=== PATIENT | female | born 1935 | race Caucasian/White ===

== ENCOUNTER 2016-11-29 15:49 | Observation (INO) ==
[2016-11-29] MEDS ORDERED: Ipratropium/Albuterol Neb 3 ML IH ONE (15:57)
[2016-11-29] MEDS ORDERED: methylPREDNISolone 125 MG/2 ML VIAL IVP ONE (15:57)
[2016-11-29] MEDS ORDERED: Aspirin 81 MG TAB.CHEW PO STA (15:57)
--- NOTE | 2016-11-29 16:02 | Emergency Department Note ---
Disposition Clinical Impression: Acute exacerbation of chronic obstructive airways disease Disposition: Admitted As Inpatient Condition: Fair Referrals: Jason Crane MD [Primary Care Provider] - Forms: ED Satisfaction Letter Time of Disposition: 18:19 SOB HPI - General Chief Complaint: ED Shortness of Breath/Dyspnea Stated Complaint: GILA, chest pain, cough Time Seen by Provider: 11/29/16 15:54 Source: patient, EMS Mode of arrival: EMS Limitations: no limitations Nursing Notes Reviewed: Yes Vital Signs Reviewed: Yes - History of Present Illness 81-year-old with history COPD comes in complaining of intermittent chest pain and increasing shortness of breath over the last day or 2. Patient has had a heart attack in the past. Pt Subjective Complaint: shortness of breath, cough Onset (ago): day(s) Severity: moderate Consistency/Duration: constant Improves with: nothing Worsens with: exertion Known history of: COPD Associated symptoms: Reports: chest pain Cough present: Yes Cough Description: Involuntary Cough Frequency: Intermittent - Related Data Home Medications Medication Instructions Recorded Confirmed Albuterol Sulfate [Ventolin Hfa] 2 puff IH Q4H PRN 04/21/16 08/18/16 Aspirin 81 mg PO DAILY 04/21/16 08/18/16 Calcium Carbonate/Vitamin D3 1 tab PO DAILY 04/21/16 08/18/16 [Calcium 500-Vit D3 400 Tablet] Cetirizine HCl [24Hour Allergy] 10 mg PO DAILY 04/21/16 08/18/16 Clopidogrel Bisulfate [Plavix] 75 mg PO DAILY 04/21/16 08/18/16 Cyanocobalamin (Vitamin B-12) 1,000 mcg PO DAILY 04/21/16 08/18/16 [Vitamin B12] Esomeprazole Magnesium [Nexium] 40 mg PO DAILY 04/21/16 08/18/16 Folic Acid 0.4 mg PO DAILY 04/21/16 08/18/16 Furosemide [Lasix] 40 mg PO DAILY 04/21/16 08/18/16 HYDROcodone/Acet 10/325 mg [[place] 1 tab PO Q6HR PRN 04/21/16 08/18/16 10-325 mg] Magnesium Oxide [Magnesium] 400 mg PO DAILY 04/21/16 08/18/16 Pregabalin [Lyrica] 50 mg PO DAILY 09/23/16 01/20/17 Simvastatin [Zocor] 20 mg PO HS 04/21/16 08/18/16 Valsartan [Diovan] 160 mg PO DAILY 04/21/16 08/18/16 Ferrous Sulfate [Iron] 325 mg PO DAILY 08/18/16 08/18/16 Oxygen 2 l NS HS 08/18/16 08/18/16 Previous Rx's Medication Instructions Recorded Ipratropium/Albuterol Neb [Duoneb] 3 ml IH [id number] #60 inhsol 04/24/16 Sennosides/Docusate Sodium [Senna 1 each PO BID #60 tablet 04/24/16 Plus] Omeprazole [PriLOSEC] 20 mg PO BIDAC #30 cap 05/03/16 Allergies Allergy/AdvReac Type Severity Reaction Status Date / Time morphine AdvReac Anaphylaxis Verified 11/29/16 15:52 All systems ED: reviewed and negative except as stated. Constitutional: Denies: fever, chills, weakness, weight change Eyes: Denies: eye pain, eye discharge, vision change ENT ED: Denies: ear pain, throat pain, dental pain, hearing loss, epistaxis, congestion, dysphagia Cardiovascular: Reports: chest pain. Denies: palpitations, dyspnea on exertion , edema, syncope Respiratory: Reports: cough, dyspnea, wheezes. Denies: hemoptysis, stridor Gastrointestinal: Denies: abdominal pain, nausea, vomiting, diarrhea, constipation, hematemesis, melena, hematochezia Genitourinary: Denies: dysuria, frequency, hematuria, discharge Musculoskeletal: Denies: back pain, neck pain, arthralgia, myalgia Integumentary: Denies: rash, abrasion, lesions Neurological: Denies: headache, weakness, numbness, paresthesias, confusion, abnormal gait, vertigo Psychiatric: Denies: anxiety, depression, suicidal thoughts, homicidal thoughts , auditory hallucinations, visual hallucinations Endocrine: Denies: fatigue Hematological/Lymphatic: Denies: easy bleeding, easy bruising Allergic/Immunologic: Denies: facial swelling, urticaria Past Medical History - Past Medical History Medical history: Reports: COPD, coronary artery disease, CVA, hyperlipidemia, hypertension, myocardial infarction, renal disease Surgical history: Reports: cholecystectomy, herniorrhaphy, hysterectomy, orthopedic, other Psychiatric history: Reports: no psych history - Social History Smoking Status: Former smoker Smokeless Tobacco Status: No Alcohol use: Reports: none Drug use: Reports: none Physical Exam - General Limitations: no limitations General appearance: alert - Head Head exam: atraumatic, normocephalic, normal inspection - Eye Eye exam: Present: normal appearance, PERRL, EOMI - ENT ENT exam: normal exam, normal oropharynx, mucous membranes moist - Neck Neck exam: Present: normal inspection, full ROM, trachea midline - Chest Chest inspection: Present: normal inspection, symmetric chest wall rise - Respiratory Respiratory exam: Present: respiratory distress, wheezes - Cardiovascular Cardiovascular exam: Present: regular rate, normal rhythm, normal heart sounds - Abdominal Exam Abdominal exam: Present: soft, Non-Tender. Absent: tenderness, distention, guarding, rebound, rigidity - Extremities Exam Extremities exam: Present: normal inspection, full ROM. Absent: tenderness, pedal edema - Expanded Lower Extremity Exam Neurovascular/Tendon exam: Absent: motor deficit, sensory deficit, tendon deficit Gait: observed and normal - Back Exam Back exam: Present: normal inspection, full ROM. Absent: tenderness - Neurological Exam Neurological exam: Present: alert, oriented X3 - Psychiatric Psychiatric exam: Present: normal affect, normal mood - Skin Skin exam: Present: warm, dry, intact, normal color Course - Reevaluation(s) Reevaluation #1: 81-year-old comes in complaining of increasing shortness of breath with a history COPD. Chest x-ray shows some atelectasis with small pleural effusion. Initial cardiac workup is negative BNP is negative. Will be admitted for an exacerbation of COPD. Time: 18:18 - Consultations Consultation #1: Discussed with Dr. Titus, admit. Time: 18:58 Vital Signs Temperature 98.0 F 11/29/16 15:52 Pulse Rate 91 11/29/16 15:52 Respiratory Rate 19 11/29/16 15:52 Blood Pressure 176/79 11/29/16 15:52 O2 Sat by Pulse Oximetry 96 11/29/16 15:52 Temperature 98.0 F 11/29/16 15:52 Pulse Rate 74 11/29/16 18:00 Respiratory Rate 20 11/29/16 18:00 Blood Pressure 136/91 11/29/16 18:00 O2 Sat by Pulse Oximetry 94 11/29/16 18:00 Oxygen Delivery Oxygen Delivery Room Air Shortness of Breath/Dyspnea - Lab Data Lab results reviewed: Yes I reviewed the patient's lab results. Result diagrams: 11/29/16 16:26 11/29/16 16:26 Lab Results 11/29/16 11/29/16 11/29/16 Range/Units 16:26 16:26 16:26 WBC 6.8 (4.3-11.1) K/mcL RBC 3.86 (3.82-4.97) M/mcL Hgb 11.3 L (11.5-15.4) g/dL Hct 36.3 (35.3-44.9) % MCV 94.0 (83.0-100.0) fL MCH 29.3 (28.0-33.3) pg MCHC 31.1 L (31.6-35.5) g/dL RDW 14.0 (11.5-14.5) % Plt Count 354 (140-400) K/mcL MPV 9.8 (9.4-12.4) fL Immature Gran % 0.3 (0-4) % Seg Neutrophils % 37.8 % Lymphocytes % 39.3 % Monocytes % 11.8 % Eosinophils % 9.9 % Basophils % 0.9 % Neutrophils # 2.6 (1.6-8.9) K/mcL Lymphocytes # 2.7 (0.6-4.6) K/mcL Monocytes # 0.8 (0.0-1.3) K/mcL Eosinophils # 0.7 H (0.0-0.6) K/mcL Basophils # 0.1 (0.0-0.2) K/mcL PT 11.9 (9.4-12.1) Seconds INR 1.1 APTT 33.8 (26.0-36.0) Seconds Sodium 143 (136-145) mEq/L Potassium 4.1 (3.5-4.5) mEq/L Chloride 107 (98-109) mEq/L Carbon Dioxide 27 (19-29) mEq/L BUN 22 H (7-20) mg/dL Creatinine 1.69 H (0.57-1.11) mg/dL Est GFR ( Amer) 35 L (> 60) Est GFR (Non-Af Amer) 29 L (> 60) BUN/Creatinine Ratio 13 (6-26) Glucose 93 (70-99) mg/dL Calculated Osmolality 299 (280-300) Lactic Acid (0.5-2.2) mmol/L Calcium 9.4 (8.6-10.8) mg/dL Troponin I (0-0.03) ng/mL B-Natriuretic Peptide (0-100) pg/mL 11/29/16 11/29/16 11/29/16 Range/Units 16:26 16:26 16:26 WBC (4.3-11.1) K/mcL RBC (3.82-4.97) M/mcL Hgb (11.5-15.4) g/dL Hct (35.3-44.9) % MCV (83.0-100.0) fL MCH (28.0-33.3) pg MCHC (31.6-35.5) g/dL RDW (11.5-14.5) % Plt Count (140-400) K/mcL MPV (9.4-12.4) fL Immature Gran % (0-4) % Seg Neutrophils % % Lymphocytes % % Monocytes % % Eosinophils % % Basophils % % Neutrophils # (1.6-8.9) K/mcL Lymphocytes # (0.6-4.6) K/mcL Monocytes # (0.0-1.3) K/mcL Eosinophils # (0.0-0.6) K/mcL Basophils # (0.0-0.2) K/mcL PT (9.4-12.1) Seconds INR APTT (26.0-36.0) Seconds Sodium (136-145) mEq/L Potassium (3.5-4.5) mEq/L Chloride (98-109) mEq/L Carbon Dioxide (19-29) mEq/L BUN (7-20) mg/dL Creatinine (0.57-1.11) mg/dL Est GFR ( Amer) (> 60) Est GFR (Non-Af Amer) (> 60) BUN/Creatinine Ratio (6-26) Glucose (70-99) mg/dL Calculated Osmolality (280-300) Lactic Acid 1.3 (0.5-2.2) mmol/L Calcium (8.6-10.8) mg/dL Troponin I 0.03 (0-0.03) ng/mL B-Natriuretic Peptide 94 (0-100) pg/mL - Radiology Data Radiology results reviewed: Yes I reviewed the patient's radiology results. Chest X-Ray 11/29/16 15:57 IMPRESSION: Small left pleural effusion with bibasilar atelectasis. D/ / Elvie Henriquez MD / Elvie Henriquez MD Interpreting Provider: Elvie Henriquez MD - EKG Data EKG attestation: Yes I reviewed and interpreted this EKG. EKG shows normal: Reports: sinus rhythm Rate: Reports: normal Rhythm: Reports: NSR Interpretation: Reports: no acute changes
[2016-11-29 16:38] LABS: Basophils # 0.1 K/mcL (0.0-0.2); Basophils % 0.9 %; Eosinophils # 0.7 K/mcL (0.0-0.6); Eosinophils % 9.9 %; Hematocrit 36.3 % (35.3-44.9); Hemoglobin 11.3 g/dL (11.5-15.4); INR 1.1; Immature Granulocytes % 0.3 % (0-4); Lymphocytes # 2.7 K/mcL (0.6-4.6); Lymphocytes % 39.3 %; Mean Corpuscular HGB Conc 31.1 g/dL (31.6-35.5); Mean Corpuscular Hemoglobin 29.3 pg (28.0-33.3); Mean Platelet Volume 9.8 fL (9.4-12.4); Monocytes # 0.8 K/mcL (0.0-1.3); Monocytes % 11.8 %; Neutrophils # 2.6 K/mcL (1.6-8.9); Platelet Count 354 K/mcL (140-400); Prothrombin Time 11.9 Seconds (9.4-12.1); Red Blood Count 3.86 M/mcL (3.82-4.97); Segmented Neutrophils % 37.8 %
[2016-11-29 16:41] LABS: Activated Partial Thrombo Time 33.8 Seconds (26.0-36.0)
[2016-11-29 16:49] LABS: Calcium 9.4 mg/dL (8.6-10.8); Potassium 4.1 mEq/L (3.5-4.5)
[2016-11-29] MEDS ORDERED: Naloxone 0.4 MG/ML INJ IVP PRN (20:08)
[2016-11-29] MEDS ORDERED: Ondansetron 4 MG/2 ML VIAL IVP PRN (20:08)
[2016-11-29] MEDS ORDERED: Acetaminophen 325 MG TABLET PO PRN (20:08)
[2016-11-29] MEDS ORDERED: *HR* HYDROcodone/Acet 10/325 mg TABLET PO PRN (20:10)
[2016-11-29] MEDS ORDERED: Albuterol 2.5 MG/3 ML NEBULIZER IH PRN (20:12)
--- NOTE | 2016-11-29 20:42 | Internal Med History&Physical ---
Date of Encounter: 11/29/16 Time of Encounter: 20:36 Assessment and Plan (1) Acute exacerbation of chronic obstructive airways disease Current visit: Yes Status: Acute The patient has been dispensing increased redness of breath wheezing and cough. We will continue with oxygen titrated maintain SPO2 greater than 92% 2 we will give IV Solu-Medrol to taper 3 bronchodilators (2) CAD (coronary artery disease) Current visit: No Status: Chronic 1 continue with aspirin and statin 2 cardiac monitoring 3 cardiac diet Qualifiers: Coronary Disease-Associated Artery/Lesion type: [place] artery [place] vs. transplanted heart: [place] heart Associated angina: without angina Qualified Code(s): I25.10 - Atherosclerotic heart disease of [place] coronary artery without angina pectoris (3) HTN (hypertension) Current visit: No Status: Chronic 1 continue with home medications goal was to maintain systolic less than 140 2 low sodium diet Qualifiers: Hypertension type: essential hypertension Qualified Code(s): I10 - Essential (primary) hypertension (4) CKD (chronic kidney disease) stage 4, GFR 15-29 ml/min Current visit: No Status: Chronic 1 creatinine is 1.69 which appears to be around baseline. We will continue to monitor creatinine 2 avoid nephrotoxins 3 monitor intake and output 4 daily weight (5) DVT prophylaxis Current visit: No Status: Acute 1 heparin subcutaneous Internal Medicine - H&P: HPI Chief complaint: SOB Admitted From: Emergency Dept Plans for Post Hospital Care: Home History of present illness: Ms. Condon is a 81 year old female past medical history of COPD oxygen dependent CAD CVA hyperlipidemia hypertension and MT CK D stage 3/4. According patient she has been increasing shortness breath for past 2 days. She also has been having dry nonproductive cough as well as wheezing. She is on 2 L of nasal cannula at home as well as using breathing tx with no relief. She is exposed to secondhand smoke she herself was a smoker but quit 30 years ago. She denies any fevers chills nausea vomiting or sick contacts. She did complain of some left-sided rib pain with cough. She presented to the ER with above complaints. According to ER records chest x-ray revealed atelectasis with small pleural effusion. Lab work revealed no leukocytosis and is 1.69 which appears to be around baseline. Troponin was 0.03 BNP was 94. Patient did have an echo last year in March which revealed EF 55-60%. Blood cultures were obtained patient was given breathing treatments as well as steroids wrist were status improved she has been made for further workup and evaluation. Presently the patient does not appear to be any respiratory distress she does have audible wheezes. Upon auscultation she has scattered expiratory wheezes. Heart sounds are regular S1-S2 with no rubs gallops clips murmurs noted. She is hemodynamically stable at this time. I did discuss CODE STATUS patient expressed she would like to be a DNR comfort care arrest with no intubation I reviewed this case with Dr. Oconnor who agrees with plan Past Med Surg Social Fam HX - Past Medical History Medical history: COPD, coronary artery disease, CVA, hyperlipidemia, hypertension, myocardial infarction, renal disease Psychiatric history: no psych history - Past Surgical History Surgical History: cholecystectomy, herniorrhaphy, hysterectomy, orthopedic, other - Social History Smoking Status: Former smoker Smokeless Tobacco Status: No Alcohol use: none Drug use: none - Family History Father Living Status: Age at : 89 Cause of : stroke Mother Living Status: Cause of : heart disease Internal Medicine - H&P: Meds Albuterol Sulfate [Ventolin Hfa] 2 puff IH Q4H PRN 04/21/16 [History] Aspirin 81 mg PO DAILY 04/21/16 [History] Calcium Carbonate/Vitamin D3 [Calcium 500-Vit D3 400 Tablet] 1 tab PO DAILY [History] Cetirizine HCl [24Hour Allergy] 10 mg PO DAILY 04/21/16 [History] Cyanocobalamin (Vitamin B-12) [Vitamin B12] 1,000 mcg PO DAILY 04/21/16 [History ] Folic Acid 0.4 mg PO DAILY 04/21/16 [History] Furosemide [Lasix] 40 mg PO DAILY 04/21/16 [History] HYDROcodone/Acet 10/325 mg [[place] 10-325 mg] 1 tab PO Q6HR PRN 04/21/16 [History ] Pregabalin [Lyrica] 50 mg PO DAILY 04/21/16 [History] Simvastatin [Zocor] 20 mg PO HS 04/21/16 [History] Ipratropium/Albuterol Neb [Duoneb] 3 ml IH [id number] #60 inhsol 04/24/16 [Rx] Sennosides/Docusate Sodium [Senna Plus] 1 each PO BID #60 tablet 04/24/16 [Rx] Omeprazole [PriLOSEC] 20 mg PO BIDAC #30 cap 05/03/16 [Rx] Ferrous Sulfate [Iron] 325 mg PO DAILY 08/18/16 [History] Oxygen 2 l NS HS 08/18/16 [History] GuaiFENesin/Dextromethorphan [Robitussin Cough-Chest Dm Liq] 5 ml PO Q4-6H PRN 11/29/16 [History] Latanoprost [Xalatan] 2.5 ml OP HS 11/29/16 [History] Magnesium Hydroxide [Milk of Magnesia] 30 ml PO DAILY PRN 11/29/16 [History] Timolol Maleate 0.25% [Timolol Maleate 0.25%] 1 drop BOTH EYES QAM 11/29/16 [ History] Allergies morphine Adverse Reaction (Verified 11/29/16 19:06) Anaphylaxis All Systems PM: A 10-system review of systems was performed and is negative for pertinent findings except as documented above in the HPI. - Constitutional Constitutional: no chills, no fever(s), no night sweats - Cardiovascular Cardiovascular ROS IM: dyspnea on exertion, no chest pain, no diaphoresis, no dyspnea, no lightheadedness, no palpitations, no syncope - Respiratory Respiratory: cough, dyspnea, dyspnea on exertion, wheezing, pain with cough - Gastrointestinal Gastrointestinal: as per HPI - Genitourinary Genitourinary: no change in urinary stream, no dysuria, no flank pain, no hematuria - Musculoskeletal Musculoskeletal ROS IM: no numbness, no tingling - Integumentary Integumentary IM: no rash, no unusual bruising - Neurological Neurological ROS: no confusion, no convulsions, no focal weakness, no numbness, no tingling, no tremor(s) - Hematologic/Lymphatic Hematologic/Lymphatic: no easy bruising - Constitutional Vitals: Temp Pulse Resp BP Pulse Ox 98.0 F 80 18 149/76 94 11/29/16 19:36 11/29/16 19:36 11/29/16 19:36 11/29/16 19:36 11/29/16 19:36 General appearance: Present: A&O X 3, pleasant, answers questions appropriately - Head Head exam: Present: atraumatic, normocephalic - Eye Eye exam: Present: PERRL, conjuntiva pink, sclera anicteric Pupils: Present: PERRL - Neck Neck exam general surgery: Present: supple, trachea midline. Absent: lymphadenopathy - Respiratory Respiratory exam: Present: wheezes. Absent: accessory muscle use, rales, rhonchi - Cardiovascular Cardiovascular exam: Present: RRR, +S1, +S2. Absent: diastolic murmur, gallop, rubs, systolic murmur - GI/Abdominal GI/Abdominal exam: Present: normal bowel sounds, soft, no peritoneal signs. Absent: distended, tenderness - Extremities Exam Extremities exam: Present: warm, radial pulses palpable and symetrical. Absent : calf tenderness, cyanotic, pedal edema - Neurological Exam Neurological exam: Present: CN II-XII intact, oriented X3, no focal deficits. Absent: pronater drift, facial droop, speech deficit - Skin Skin exam: Present: dry, intact Internal Med - H&P Results - Labs CBC & Chem 7: 11/29/16 16:26 11/29/16 16:26 - EKG Data EKG shows normal: sinus rhythm - EKG Data Prior EKG available for review: yes When compared to previous EKG: there is no significant change - Diagnostic Studies Chest x-ray Additional comments: Chest X-Ray 11/29/16 15:57 IMPRESSION: Small left pleural effusion with bibasilar atelectasis. D/ / Elvie Henriquez MD / Elvie Henriquez MD Interpreting Provider: Elvie Henriquez MD
[2016-11-29] MEDS: Sennosides/Docusate Sodium TABLET PO SCH (21:36)
[2016-11-29] MEDS: Ipratropium/Albuterol Neb 3 ML IH SCH (23:31)
[2016-11-29] MEDS: methylPREDNISolone 125 MG/2 ML VIAL IVP SCH (23:48)
[2016-11-30] MEDS: Ipratropium/Albuterol Neb 3 ML IH SCH ×2 (04:14→07:45)
[2016-11-30] MEDS: methylPREDNISolone 125 MG/2 ML VIAL IVP SCH (05:07)
[2016-11-30] MEDS ORDERED: *HR* Heparin 5,000 UNIT/ML VIAL SQ SCH (06:00)
[2016-11-30 06:34] LABS: Basophils % 0.1 %; Hematocrit 36.6 % (35.3-44.9); Hemoglobin 11.5 g/dL (11.5-15.4); Immature Granulocytes % 1.1 % (0-4); Lymphocytes # 1.6 K/mcL (0.6-4.6); Mean Corpuscular HGB Conc 31.4 g/dL (31.6-35.5); Mean Corpuscular Hemoglobin 28.8 pg (28.0-33.3); Mean Corpuscular Volume 91.7 fL (83.0-100.0); Mean Platelet Volume 10.1 fL (9.4-12.4); Monocytes # 0.1 K/mcL (0.0-1.3); Platelet Count 392 K/mcL (140-400); Red Blood Count 3.99 M/mcL (3.82-4.97); Red Cell Distribution Width 13.9 % (11.5-14.5); Segmented Neutrophils % 75.8 %
[2016-11-30 06:38] LABS: Neutrophils # 5.5 K/mcL (1.6-8.9)
[2016-11-30 06:49] VITALS: BP 129/70
[2016-11-30 07:00] LABS: Calcium 9.4 mg/dL (8.6-10.8)
[2016-11-30 07:02] LABS: Potassium 4.7 mEq/L (3.5-4.5)
[2016-11-30 07:15] LABS: Platelet Estimate Normal (Normal); Reactive Lymphocytes Present (Not Present)
[2016-11-30] MEDS: Sennosides/Docusate Sodium TABLET PO SCH (08:07)
[2016-11-30] MEDS ORDERED: Cyanocobalamin (B-12) 1,000 MCG TABLET PO SCH (09:00)
[2016-11-30] MEDS ORDERED: Furosemide 40 MG TABLET PO SCH (09:00)
[2016-11-30] MEDS ORDERED: Folic Acid 1 MG TABLET PO SCH (09:00)
[2016-11-30] MEDS ORDERED: Aspirin 81 MG TAB.CHEW PO SCH (09:00)
[2016-11-30] MEDS ORDERED: NON-FORMULARY MEDICATION 1 EACH EACH PO SCH (09:00)
[2016-11-30] MEDS ORDERED: Pregabalin 50 MG CAPSULE PO SCH (09:00)
[2016-11-30] MEDS ORDERED: Loratadine 10 MG TABLET PO SCH (09:00)
--- NOTE | 2016-11-30 10:15 | Discharge Summary ---
Date of Encounter: 11/30/16 Time of Encounter: 09:30 - Discharge Diagnosis (1) Acute exacerbation of chronic obstructive airways disease Priority: Primary Status: Resolved Comments: Shortly after being admitted, patient stating she felt as if she was back to her baseline and she requested to go home. She did not have increased need for supplemental oxygenation. (2) Acute and chronic respiratory failure Priority: Secondary Status: Chronic Comments: Patient is on 2 L per nasal cannula continuously at home, 2 L here. She states she is at her baseline. Qualifiers: Respiratory failure complication: unspecified whether with hypoxia or hypercapnia Qualified Code(s): J96.20 - Acute and chronic respiratory failure , unspecified whether with hypoxia or hypercapnia (3) CKD (chronic kidney disease) stage 4, GFR 15-29 ml/min Priority: Secondary Status: Chronic Comments: Patient's renal functioning has been fluctuating between stage III and stage IV and she is currently at the high end of her normal. Follow-up outpatient. (4) COPD (chronic obstructive pulmonary disease) Priority: Secondary Status: Chronic Qualifiers: COPD type: unspecified COPD Qualified Code(s): J44.9 - Chronic obstructive pulmonary disease, unspecified (5) DVT prophylaxis Priority: Primary Status: Acute Comments: Subcutaneous heparin while admitted (6) CAD (coronary artery disease) Priority: Secondary Status: Chronic Comments: Patient denied chest pain during this admission Qualifiers: Coronary Disease-Associated Artery/Lesion type: [place] artery [place] vs. transplanted heart: [place] heart Associated angina: without angina Qualified Code(s): I25.10 - Atherosclerotic heart disease of [place] coronary artery without angina pectoris (7) HTN (hypertension) Priority: Secondary Status: Chronic Comments: Borderline hypertensive at times, normotensive on day of discharge with her regular home medications. Recommend daily blood pressure checks at home, keeping a log, and following up outpatient. At home, the only antihypertensive medication patient is on his furosemide. Qualifiers: Hypertension type: essential hypertension Qualified Code(s): I10 - Essential (primary) hypertension - Discharge Medications Prescriptions: Levofloxacin 750 mg PO Q48H #5 tablet PredniSONE 10 mg PO DAILY #80 tablet Home Medications: Albuterol Sulfate [Ventolin Hfa] 2 puff IH Q4H PRN 04/21/16 [History] Aspirin 81 mg PO DAILY 04/21/16 [History] Calcium Carbonate/Vitamin D3 [Calcium 500-Vit D3 400 Tablet] 1 tab PO DAILY [History] Cetirizine HCl [24Hour Allergy] 10 mg PO DAILY 04/21/16 [History] Cyanocobalamin (Vitamin B-12) [Vitamin B12] 1,000 mcg PO DAILY 04/21/16 [History ] Folic Acid 0.4 mg PO DAILY 04/21/16 [History] Furosemide [Lasix] 40 mg PO DAILY 04/21/16 [History] HYDROcodone/Acet 10/325 mg [[place] 10-325 mg] 1 tab PO Q6HR PRN 04/21/16 [History ] Pregabalin [Lyrica] 50 mg PO DAILY 04/21/16 [History] Simvastatin [Zocor] 20 mg PO HS 04/21/16 [History] Ipratropium/Albuterol Neb [Duoneb] 3 ml IH [id number] #60 inhsol 04/24/16 [Rx] Sennosides/Docusate Sodium [Senna Plus] 1 each PO BID #60 tablet 04/24/16 [Rx] Omeprazole [PriLOSEC] 20 mg PO BIDAC #30 cap 05/03/16 [Rx] Ferrous Sulfate [Iron] 325 mg PO DAILY 08/18/16 [History] Oxygen 2 l NS HS 08/18/16 [History] GuaiFENesin/Dextromethorphan [Robitussin Cough-Chest Dm Liq] 5 ml PO Q4-6H PRN 11/29/16 [History] Latanoprost [Xalatan] 2.5 ml OP HS 11/29/16 [History] Magnesium Hydroxide [Milk of Magnesia] 30 ml PO DAILY PRN 11/29/16 [History] Timolol Maleate 0.25% 1 drop BOTH EYES QAM 11/29/16 [History] Levofloxacin 750 mg PO Q48H #5 tablet 11/30/16 [Rx] PredniSONE 10 mg PO DAILY #80 tablet 11/30/16 [Rx] Allergies/Adverse Reactions: Allergies morphine Adverse Reaction (Verified 11/29/16 19:06) Anaphylaxis Date of admission: 11/29/16 19:00 Primary care physician: Jason Crane MD Discharging clinician: Fiona Mendez Anticipated date of discharge: 11/30/16 (pt back to her baseline and requesting to go home) - Patient Status Disposition: Home, Self-Care Condition: Fair Functional capacity at discharge: independent ambulation Overall status at discharge: patient is back to baseline - Discharge Instructions Follow Up With: Jason Crane MD [Primary Care Provider] - Additional Instructions: Follow-up with primary care provider within one to 2 weeks - Diet and Activity Activity: wear oxygen at all times Diet: low fat, low cholesterol, low salt diet Hospital course: Ms. Condon is a 81 year old female with past medical history of COPD on 2 L per nasal cannula continuously, CAD, CVA, hyperlipidemia, hypertension, chronic kidney disease stage 3/4. Patient presented to the emergency department chief complaint increasing shortness of breath 2 days prior to presentation. Patient also endorsed a dry, nonproductive cough and wheezing. She was using her breathing treatments at home without relief. Patient stopped smoking 30 years ago but is still exposed to secondhand smoke. Patient denied fever, chills, nausea or vomiting. Workup in the emergency department unremarkable. Chest x-ray negative for acute processes. Patient was admitted to the hospitalist service for further evaluation and management. She was treated for COPD exacerbation. Shortly after being admitted on day 1, patient stating she was back to her baseline and stated she wanted to go home. She was encouraged to stay as she was receiving high-dose IV steroids 60 mg of Solu-Medrol every 6 hours. She was encouraged to stay so that this can be tapered and she could be properly transitioned to prednisone by mouth. She stated she really wanted to go home and was insistent that she was back to her norm and wanted to go. She did not have increased need for oxygen and she remained on 2 L. Creatinine clearance calculated at 21 using ABW on the discharge and she was sent home on renally dosed levofloxacin for her exacerbation. She was also sent on a 3 week taper of prednisone starting at 60 mg daily to help transition from high-dose IV methylprednisolone. While admitted, patient had an intermittent, moist, nonproductive cough. She was encouraged to use her guaifenesin that she has at home. She was discharged home in stable condition with close outpatient follow- up recommended. ITS Impressions Chest X-Ray 11/29/16 15:57 IMPRESSION: Small left pleural effusion with bibasilar atelectasis. D/ / Elvie Henriquez MD / Elvie Henriquez MD Interpreting Provider: Elvie Henriquez MD - Time Spent with Patient Total time spent providing and/or coordinating discharge services: - Constitutional Vitals: Temp Pulse Resp BP Pulse Ox 97.9 F 102 16 129/70 93 11/30/16 06:43 11/30/16 06:43 11/30/16 06:43 11/30/16 06:43 11/30/16 08:15 General appearance: Present: A&O X 3, pleasant, no acute distress, answers questions appropriately - Head Head exam: Present: atraumatic, normocephalic - Eye Eye exam: Present: PERRL, conjuntiva pink, sclera anicteric Pupils: Present: PERRL - Neck Neck exam general surgery: Present: supple, trachea midline. Absent: lymphadenopathy - Respiratory Respiratory exam: Present: accessory muscle use, decreased breath sounds, wheezes. Absent: rales, respiratory distress, rhonchi - Cardiovascular Cardiovascular exam: Present: RRR, +S1, +S2. Absent: diastolic murmur, gallop, rubs, systolic murmur - GI/Abdominal GI/Abdominal exam: Present: normal bowel sounds, soft, no peritoneal signs. Absent: distended, tenderness - Extremities Exam Extremities exam: Present: warm, radial pulses palpable and symetrical. Absent : calf tenderness, cyanotic, pedal edema - Neurological Exam Neurological exam: Present: alert, CN II-XII intact, oriented X3, no focal deficits, strengths equal and symetr throughout. Absent: pronater drift, facial droop, speech deficit - Skin Skin exam: Present: dry, intact, normal color, warm
--- NOTE | 2016-11-30 10:32 | Electrocardiograph Report ---
[address] [place] [address] Test Date: 2016-11-29 Pat Name: Ronal Shot Stats Department: 104 Room: 3B21 Gender: F Steeple Jack: : 1935 Requested By: Sean Casiano Order Number: [id number] Reading MD: Amrit Reddy Measurements Intervals [place] Rate: 76 P: 44 CT: 162 QRS: 4 QRSD: 91 T: 55 QT: 395 QTc: 425 Interpretive Statements SINUS RHYTHM PROBABLE INFERIOR MYOCARDIAL INFARCTION, PROBABLY OLD Electronically Signed On 11-30-2016 10:31:17 EDT by Amrit Reddy
== END 2016-11-30 11:25 | disposition home or self-care (01) ==
LOC: 3BNU 15:49 → EMEROO 15:49 → 3BNU 19:14
PROVIDERS: ADMIT Nurse Practitioner Acute Care; ATTEND Nurse Practitioner Family

== ENCOUNTER 2017-02-19 11:46 | Inpatient (IN) ==
--- NOTE | 2017-02-18 22:23 | Discharge Summary ---
<Starr Don - Last Filed: 02/18/17 22:21> Date of Encounter: 02/18/17 - Discharge Diagnosis (1) Arthritis of knee, right Priority: Primary Status: Acute (2) Status post total knee replacement, right Priority: Primary Status: Acute (3) Chronic pain Priority: Secondary Status: Acute Comments: Chronic pain: [place] 10/325mg QID #120, LD 02/02/17. Gabapentin Lyrica Will continue chronic pain medication. Qualifiers: Chronic pain type: other chronic pain Qualified Code(s): G89.29 - Other chronic pain (4) COPD (chronic obstructive pulmonary disease) Priority: Secondary Status: Chronic Qualifiers: COPD type: unspecified COPD Qualified Code(s): J44.9 - Chronic obstructive pulmonary disease, unspecified (5) Nocturnal hypoxemia Priority: Secondary Status: Chronic Comments: Requires oxygen at night - 2 liters via nasal cannula (6) CAD (coronary artery disease) Priority: Secondary Status: Chronic Qualifiers: Coronary Disease-Associated Artery/Lesion type: unspecified vessel or lesion type [place] vs. transplanted heart: [place] heart Associated angina: without angina Qualified Code(s): I25.10 - Atherosclerotic heart disease of [place] coronary artery without angina pectoris (7) HTN (hypertension) Priority: Secondary Status: Chronic Qualifiers: Hypertension type: essential hypertension Qualified Code(s): I10 - Essential (primary) hypertension (8) Obesity Priority: Secondary Status: Chronic Qualifiers: Obesity type: due to excess calories Obesity classification: unspecified obesity classification Serious obesity comorbidity presence: without serious comorbidity Qualified Code(s): E66.09 - Other obesity due to excess calories (9) HTN (hypertension) Priority: Secondary Status: Chronic Qualifiers: Hypertension type: essential hypertension Qualified Code(s): I10 - Essential (primary) hypertension - Discharge Medications Home Medications: Albuterol Neb [Proventil Neb] 2.5 mg IH TID PRN 02/19/17 [History] Albuterol Sulfate [Ventolin Hfa] 2 puff IH Q4H PRN 02/19/17 [History] Aspirin [Lo-Dose Aspirin EC] 81 mg PO DAILY 02/19/17 [History] Bisacodyl [Dulcolax] 10 mg RC DAILY 02/19/17 [History] Brimonidine 0.2% [Alphagan] 1 drop BOTH EYES BID 02/19/17 [History] Calcium Carbonate/Vitamin D3 [Calcium 600 + Vit D Tablet] 1 tab PO DAILY [History] Cetirizine HCl [All Day Allergy] 10 mg PO HS 02/19/17 [History] Cyanocobalamin (Vitamin B-12) [Vitamin B12] 1,000 mcg PO DAILY 02/19/17 [History ] Docusate Sodium [Dok] 100 mg PO DAILY PRN 02/19/17 [History] Fluticasone/Vilanterol [Breo Ellipta 100-25 Mcg INH] 1 puff IH DAILY 02/19/17 [ History] Folic Acid 0.4 mg PO DAILY 02/19/17 [History] Furosemide [Lasix] 40 mg PO DAILY PRN 02/19/17 [History] HYDROcodone/Acet 10/325 mg [[place] 10-325 mg] 1 tab PO Q6HR PRN 02/19/17 [History ] Ipratropium/Albuterol Neb [Duoneb] 3 ml IH Q6HR 02/19/17 [History] Latanoprost [Xalatan] 2.5 ml BOTH EYES HS 02/19/17 [History] Omeprazole [PriLOSEC] 20 mg PO DAILY 02/19/17 [History] Oxygen 2 l NS HS 02/19/17 [History] PrednisoLONE Acetate [Pred Forte] 1 drop OP BID MDD SEE NOTE 02/19/17 [History] Pregabalin [Lyrica] 50 mg PO BID 02/19/17 [History] Roflumilast [Daliresp] 500 mcg PO DAILY 02/19/17 [History] Simvastatin [Zocor] 20 mg PO HS 02/19/17 [History] Timolol Maleate 0.25% 1 drop BOTH EYES QAM 02/19/17 [History] Valsartan [Diovan] 80 mg PO DAILY 02/19/17 [History] Allergies/Adverse Reactions: Allergies morphine Adverse Reaction (Verified 02/19/17 21:08) Anaphylaxis Primary care physician: Jason Crane MD - Patient Status Disposition: Transfer Inpatient Rehab Fac Condition: Good - Discharge Instructions Follow Up With: Jason Crane MD [Primary Care Provider] - - Hospital Course Hospital course: Ms. Condon is a 81 year old female - Time Spent with Patient Total time spent providing and/or coordinating discharge services: <Ole Moya - Last Filed: 02/23/17 16:17> Date of Encounter: 02/23/17 Time of Encounter: 16:16 - Discharge Diagnosis (1) CKD (chronic kidney disease) stage 4, GFR 15-29 ml/min Priority: Secondary Status: Chronic (2) COPD (chronic obstructive pulmonary disease) Priority: Secondary Status: Chronic Qualifiers: COPD type: unspecified COPD Qualified Code(s): J44.9 - Chronic obstructive pulmonary disease, unspecified (3) CAD (coronary artery disease) Priority: Secondary Status: Chronic Qualifiers: Coronary Disease-Associated Artery/Lesion type: [place] artery [place] vs. transplanted heart: [place] heart Associated angina: without angina Qualified Code(s): I25.10 - Atherosclerotic heart disease of [place] coronary artery without angina pectoris (4) HTN (hypertension) Priority: Secondary Status: Chronic Qualifiers: Hypertension type: essential hypertension Qualified Code(s): I10 - Essential (primary) hypertension (5) Arthritis of knee, right Priority: Primary Status: Chronic (6) Status post total knee replacement, right Priority: Primary Status: Acute (7) Chronic pain Priority: Secondary Status: Chronic Qualifiers: Chronic pain type: other chronic pain Qualified Code(s): G89.29 - Other chronic pain (8) COPD (chronic obstructive pulmonary disease) Priority: Secondary Status: Chronic Qualifiers: COPD type: unspecified COPD Qualified Code(s): J44.9 - Chronic obstructive pulmonary disease, unspecified (9) CAD (coronary artery disease) Priority: Secondary Status: Chronic Qualifiers: Coronary Disease-Associated Artery/Lesion type: [place] artery [place] vs. transplanted heart: [place] heart Associated angina: without angina Qualified Code(s): I25.10 - Atherosclerotic heart disease of [place] coronary artery without angina pectoris (10) HTN (hypertension) Priority: Secondary Status: Chronic Qualifiers: Hypertension type: essential hypertension Qualified Code(s): I10 - Essential (primary) hypertension (11) Acute blood loss anemia Priority: Primary Status: Resolved (12) Acute encephalopathy Priority: Primary Status: Acute (13) Tachycardia Priority: Primary Status: Acute (14) Nocturnal hypoxemia Priority: Secondary Status: Chronic Primary care physician: Jason Crane MD - Patient Status Functional capacity at discharge: uses cane/walker Overall status at discharge: patient is progressing back to baseline - Hospital Course Hospital course: Ms. Condon is a 81 year old female patient with episodes of postoperative encephalopathy as well as tachycardia treated medically no etiology identified improving with medical management stable on discharge. Patient status post right total knee replacement. Received antibiotics and physical therapy. Patient with acute blood loss anemia and received transfusion. Patient discharged in stable condition. Follow-up 1 week - Time Spent with Patient Total time spent providing and/or coordinating discharge services:
--- NOTE | 2017-02-18 22:30 | Physician Discharge Referral ---
ExtendedCare Referral Info Transfer To: [facility] Provider in Charge: Provider in Charge after Transfer: PCP Institutional Level of Care: Skilled - Diagnosis (1) Arthritis of knee, right Priority: Primary Status: Acute (2) Status post total knee replacement, right Priority: Primary Status: Acute (3) Chronic pain Priority: Secondary Status: Acute (4) COPD (chronic obstructive pulmonary disease) Priority: Secondary Status: Chronic (5) Nocturnal hypoxemia Priority: Secondary Status: Chronic (6) CAD (coronary artery disease) Priority: Secondary Status: Chronic (7) HTN (hypertension) Priority: Secondary Status: Chronic (8) Obesity Status: Chronic (9) HTN (hypertension) Priority: Secondary Status: Chronic Expected Duration of Placement: < 30 days Prognosis: Good Aware of Diagnosis: Patient Aware of Prognosis: Patient - Transfer Medications Prescriptions: HYDROcodone/Acet 10/325 mg [[place] 10-325 mg] 1 tab PO Q6HR PRN #40 PRN Reason: Pain Aspirin Enteric Coated [Aspirin EC] 325 mg PO DAILY #21 tablet. Pregabalin [Lyrica] 50 mg PO DAILY #5 Home Medications: Albuterol Sulfate [Ventolin Hfa] 2 puff IH Q4H PRN 04/21/16 [History] Calcium Carbonate/Vitamin D3 [Calcium 500-Vit D3 400 Tablet] 1 tab PO DAILY [History] Cetirizine HCl [24Hour Allergy] 10 mg PO DAILY 04/21/16 [History] Cyanocobalamin (Vitamin B-12) [Vitamin B12] 1,000 mcg PO DAILY 04/21/16 [History ] Folic Acid 0.4 mg PO DAILY 04/21/16 [History] Furosemide [Lasix] 40 mg PO DAILY 04/21/16 [History] Simvastatin [Zocor] 20 mg PO HS 04/21/16 [History] Ipratropium/Albuterol Neb [Duoneb] 3 ml IH [id number] #60 inhsol 04/24/16 [Rx] Sennosides/Docusate Sodium [Senna Plus] 1 each PO BID #60 tablet 04/24/16 [Rx] Omeprazole [PriLOSEC] 20 mg PO BIDAC #30 cap 05/03/16 [Rx] Ferrous Sulfate [Iron] 325 mg PO DAILY 08/18/16 [History] Oxygen 2 l NS HS 08/18/16 [History] GuaiFENesin/Dextromethorphan [Robitussin Cough-Chest Dm Liq] 5 ml PO Q4-6H PRN 11/29/16 [History] Latanoprost [Xalatan] 2.5 ml OP HS 11/29/16 [History] Magnesium Hydroxide [Milk of Magnesia] 30 ml PO DAILY PRN 11/29/16 [History] Timolol Maleate 0.25% 1 drop BOTH EYES QAM 11/29/16 [History] Aspirin Enteric Coated [Aspirin EC] 325 mg PO DAILY #21 tablet. 02/18/17 [Rx] HYDROcodone/Acet 10/325 mg [[place] 10-325 mg] 1 tab PO Q6HR PRN #40 02/18/17 [Rx ] Pregabalin [Lyrica] 50 mg PO DAILY #5 02/18/17 [Rx] Allergies/Adverse Reactions: Allergies morphine Adverse Reaction (Verified 11/29/16 19:06) Anaphylaxis - Respiratory Orders Oxygen / L per min (2 liters via nasal cannula at night) Smoking Cessation: Smoking cessation has been advised. For more information, call the [place] Tobacco Quit Line at 1-183-LMVG-NOW. - Ancillary Orders May use pressure relief devices daily prn, May go on [place] w/family/respon libertarian w /meds at nurse discretion PRN, May consult with Dentist, Ethylene Plant Helper, Residential Mortgage Manager PRN - History and Physical History/Physical reviewed & approved w/add comments: Yes - Mobility Orders Chair, Ambulate - Rehabiliation Orders Rehab Potential: Good Rehab Orders: ROM Exercises, Evaluation for Physical Therapy, Evaluation for Occupational Therapy Other: Opsite dressing, leave intact until first post-operative visit. If dressing becomes >50% saturated, contact office, remove dressing and place appropriate dressing in its place. Do not allow for dressing to get wet. [place] in place, plan to remove at post-operative day #14-16. Total Joint Precautions x 6 weeks Apply cold therapy wrap 3-6x/day for 20 minutes at a time. Encourage ambulation throughout the day Use Incentive spirometer 10x/hour. Elevate affected extremity above heart as tolerated. Brace: Wear knee immobilizer at night x 2 weeks. - Treatments Skin tear care topically daily PRN per policy List/Other: Opsite dressing, leave intact until first post-operative visit. If dressing becomes >50% saturated, contact office, remove dressing and place appropriate dressing in its place. Do not allow for dressing to get wet. [place] in place, plan to remove at post-operative day #14-16. Total Joint Precautions x 6 weeks Apply cold therapy wrap 3-6x/day for 20 minutes at a time. Encourage ambulation throughout the day Use Incentive spirometer 10x/hour. Elevate affected extremity above heart as tolerated. Brace: Wear knee immobilizer at night x 2 weeks. - Diet Orders Regular CERTIFICATION: I certify that the transfer of the above named patient to an Extended Care Facility is necessary for the continuing treatment of the diagnosis listed. The above information is true and accurate reflection of patient's current condition. Confidential - Redisclosure prohibited without a patient's written consent.
[2017-02-19] MEDS ORDERED: *HR* FentaNYL (PF) 100 MCG/2 ML VIAL ONE ×2 (12:09→14:39)
[2017-02-19] MEDS ORDERED: Lidocaine -MPF 2% 2 ML VIAL ONE ×2 (12:09→13:04)
[2017-02-19] MEDS ORDERED: *HR* Propofol 200 MG/20 ML VIAL IVP ONE (12:09)
[2017-02-19] MEDS ORDERED: Acetaminophen IV 1,000 MG/100 ML INFUS..BTL IVPB ONE (12:11)
[2017-02-19] MEDS ORDERED: Famotidine 20 MG/2 ML VIAL IVP ONE (12:11)
[2017-02-19] MEDS ORDERED: Gabapentin 300 MG CAPSULE PO ONE (12:12)
[2017-02-19] MEDS ORDERED: Ringers Solution, Lactated 1,000 ML IVC SCH ×2 (12:15→16:59)
--- NOTE | 2017-02-19 12:30 | History & Physical Report ---
Date of Encounter: 02/19/17 Time of Encounter: 12:30 24 Hour HP Update - Instructions Instructions: If the History and Physical is less than 30 days old and was completed prior to A.M. admission and or procedure and has NOT been updated on calendar day of procedure please complete this update prior to performing procedure. - Update Patient reports changes in Medical Condition: No Changes in examination, assessment, or condition: No Changes in Medication: No Preop tests/diagnostics Reviewed: Yes Surgery Remains Indicated: Yes Consent for Planned Operative Procedure(s) Verified: Yes - Pre-Operative Checklist Preoperative Checklist Indicated: No Prophylactic Antibiotic Ordered: Yes Is VTE Prophylaxis Indicated?: Yes
--- NOTE | 2017-02-19 12:38 | Anesthesia Evaluation PreOp ---
Date of Encounter: 02/19/17 Time of Encounter: 12:35 - Past History Planned Operation: Rt TKA Cardiac History: HTN, Hyperlipidemia, Other (CAD) Pulmonary History: COPD ASSISTANT MEDIA BUYER History: Denies Any Significant HX Other Medical History: Renal (CKD) Anesthesia History: No Prior Anesthetic Complications : No Alcohol Use: none Drug use: none Medications and Allergies Albuterol Sulfate [Ventolin Hfa] 2 puff IH Q4H PRN 04/21/16 [History] Calcium Carbonate/Vitamin D3 [Calcium 500-Vit D3 400 Tablet] 1 tab PO DAILY [History] Cetirizine HCl [24Hour Allergy] 10 mg PO DAILY 04/21/16 [History] Cyanocobalamin (Vitamin B-12) [Vitamin B12] 1,000 mcg PO DAILY 04/21/16 [History ] Folic Acid 0.4 mg PO DAILY 04/21/16 [History] Furosemide [Lasix] 40 mg PO DAILY 04/21/16 [History] Simvastatin [Zocor] 20 mg PO HS 04/21/16 [History] Ipratropium/Albuterol Neb [Duoneb] 3 ml IH [id number] #60 inhsol 04/24/16 [Rx] Sennosides/Docusate Sodium [Senna Plus] 1 each PO BID #60 tablet 04/24/16 [Rx] Omeprazole [PriLOSEC] 20 mg PO BIDAC #30 cap 05/03/16 [Rx] Ferrous Sulfate [Iron] 325 mg PO DAILY 08/18/16 [History] Oxygen 2 l NS HS 08/18/16 [History] GuaiFENesin/Dextromethorphan [Robitussin Cough-Chest Dm Liq] 5 ml PO Q4-6H PRN 11/29/16 [History] Latanoprost [Xalatan] 2.5 ml OP HS 11/29/16 [History] Magnesium Hydroxide [Milk of Magnesia] 30 ml PO DAILY PRN 11/29/16 [History] Timolol Maleate 0.25% 1 drop BOTH EYES QAM 11/29/16 [History] Aspirin Enteric Coated [Aspirin EC] 325 mg PO DAILY #21 tablet. 02/18/17 [Rx] HYDROcodone/Acet 10/325 mg [[place] 10-325 mg] 1 tab PO Q6HR PRN #40 02/18/17 [Rx ] Pregabalin [Lyrica] 50 mg PO DAILY #5 02/18/17 [Rx] Allergies morphine Adverse Reaction (Verified 11/29/16 19:06) Anaphylaxis - Meds/Allergy Pre-op Review Medications Reviewed: Yes Allergies Reviewed: Yes Beta Blockers on Current Med List: No Anesthesia Results - Labs Laboratory Tests 02/08/17 02/08/17 14:00 15:50 Hgb 11.6 Hct 38.0 Plt Count 336 Sodium 142 Potassium 4.3 BUN 27 H Creatinine 1.57 H - Imaging EKG: report reviewed (SR) Additional studies: ECHO 2016 LVEF 60% Anesthesia Exam O2 Sat Height 1.52 m Height 1.52 m Weight 53.524 kg Weight 53.524 kg O2 Sat by Pulse Oximetry 95 Vital Signs Temp Pulse Resp BP Pulse Ox 97.7 F 101 18 163/90 95 02/19/17 12:28 02/19/17 12:28 02/19/17 12:28 02/19/17 12:28 02/19/17 12:28 Height: 5'0 Weight: 118 lbs NPO (# of Hours): MN Pain Scale: 0 - HEENT Pupil (Motor): Pupils equal, EOMI Mallampati: III Teeth: Edentulous Oral Opening: Less than or equal to 3 - ASSISTANT MEDIA BUYER LOC: Oriented ASSISTANT MEDIA BUYER Motor: Normal RUE, Normal LUE, Normal RLE, Normal LLE, Normal Face ASSISTANT MEDIA BUYER Sensory: Normal: RUE, LUE, RLE, LLE, Face - Cardiac Rhythm: Regular Murmur: None JVD: No Carotid Bruit: No - Pulmonary Breath Sounds: bilateral Clear Respiratory Effort: Symmetrical Anesthesia Assess/Plan ASA Score: 3 (CAD HTN CKD) Modified [place] Scale for Level of Consciousness: Cooperative, oriented, and tranquil Anesthetic Plan: General, Regional Monitoring Plan: Standard Monitors Recovery Plan: PACU (Discussed GA and RA, agrees to proceed)
[2017-02-19] MEDS ORDERED: CeFAZolin Pre 2,000 MG/100 ML 2,000 MG/100 ML BAG IVPB ONE (12:39)
[2017-02-19] MEDS ORDERED: Albuterol 2.5 MG/3 ML NEBULIZER IH ONE (12:39)
[2017-02-19] MEDS ORDERED: 0.9 % Sodium Chloride 500 ML IVC SCH (12:45)
[2017-02-19] MEDS ORDERED: Dexamethasone 4 MG/ML VIAL ONE (13:04)
[2017-02-19] MEDS ORDERED: Ondansetron 4 MG/2 ML VIAL ONE (13:04)
[2017-02-19] MEDS ORDERED: ROPIVACAINE HCL/PF 0.5% 30 ML VIAL ONE (13:22)
[2017-02-19] MEDS ORDERED: Tetracaine/PF 20 MG/2 ML AMPUL ONE (13:23)
[2017-02-19] MEDS ORDERED: Bupivacaine/Clonidine Syringe 1 EACH SYRINGE ONE (13:24)
[2017-02-19] MEDS ORDERED: *HR* Meperidine 25 MG/ML SYRINGE IVP PRN (13:43)
[2017-02-19] MEDS ORDERED: *HR* FentaNYL (PF) 100 MCG/2 ML VIAL IVP PRN (13:43)
[2017-02-19] MEDS ORDERED: *HR* Midazolam HCl 2 MG/2 ML VIAL ONE (13:58)
--- NOTE | 2017-02-19 14:09 | Anesthesia Procedures ---
Date of Encounter: 02/19/17 Time of Encounter: 14:02 Procedures: Anesthesia - Nerve Block Procedure Date: 02/19/17 Time: 14:02 Allergies/Adv Reactions: morphine Pre-op Diagnosis: R knee arthritis Surgical Procedure: R TKA Checklist: Correct Patient Identifier, Correct procedure, History checked Correct side: Right Blood Thinner: No Monitor Applied: EKG, BP, Pulse Oximetry Supplemental Oxygen via Nasal Cannula (L/min): 3 Sedation: Versed (mg): 2 Sedation: Fentanyl (mcg): 50 Indication: Post Op Analgesia (requested by Dr. Moya) Pre-op Neuro Deficits: No Block Type: Femoral, Other (iPACK) Catheter placed: No Sterile Technique: Yes Ultrasound used: Yes Anatomy identified: Yes Visual spread of Local: Yes Neuro Stimulation: Yes Nerve Stimulator Range: 0.2 - 0.4 mA Blood on Needle Aspiration: No Smooth Injection of Local: Yes Pain with Injection of Local: No Prep: Chlorhexadine Needle: 22 x 50 mm Stimuplex (for femoral n. block), 21 x 100 mm Stimuplex (for iPACK n. block) Local: 0.25% Bupivicaine w/Clonidine 20 mcg/cc (20mL for iPACK block), Tetracaine (2mL 1% for femoral n. block), Ropivacaine (30mL 0.5% for femoral n. block), Other (4mg dexamethasone for femoral n. block) Number of Attempts: 1 Complications: None/effective block Vitals: see Francy MOREJON's documentation
[2017-02-19] MEDS ORDERED: *HR* Labetalol 20 MG/4 ML SYRINGE IVP ONE (14:44)
--- NOTE | 2017-02-19 14:45 | Orthopedic Operative Note ---
Date of procedure: 02/19/17 Pre-op diagnosis: Right knee arthritis Post-op diagnosis: same Procedure: Procedure: Right Total knee replacement Estimated blood loss: 200 cc Hardware: Metal and polyethylene replacement. Arthrex Femur: 3 Tibia: 3 PS insert: 10 Patella: 34 Exam Under anesthesia: Full flexion and extension no instability Procedural Notes: Grade 3 arthritic changes all 3 compartments. Operative procedure: The patient was brought to the operating room and placed on the operating room table. After general anesthesia was administered the operative knee was examined. Findings were noted in the exam under anesthesia. The operative extremity was prepped and draped in sterile surgical fashion. The patient received IV antibiotics prior to skin incision. A standard midline incision was made centered over the patella. The incision was made through the skin and subcutaneous tissue. A medial parapatellar tendon approach was performed. Care was taken to preserve tissue along the medial aspect of the patella. And to protect the patella tendon. The deep MCL was released off the medial tibia. The infra patella fat pad was excised. Knee was brought into flexion. Patient noted to have grade 3 arthritic changes all 3 compartments. The entry hole was made for the intramedullary femoral guide. The guide was seated in 6 degrees of valgus. Anterior cut was made followed by the distal cut. The ACL the PCL the medial and the lateral menisci were excised. The tibia was subluxed forward. The entry hole was made for the intramedullary tibial guide. Guide was seated to resect 2 mm off the more abnormal side. The knee was brought into flexion the distal femur was sized to a 3. The femoral guide was seated, the anterior cut was made followed by the posterior condylar cut, followed by the chamfer cuts. The finishing guide was seated the box cut was made and the lug holes were drilled. The tibia was sized to a 3, the tibial tray was seated and prepared with the large drill followed by the fin cutter. Trial reduction revealed full extension no varus valgus instability with the appropriate 10 PS Janel. The patella was everted and cut was made at the level of the insertion of the quadriceps and patella tendon. The patella was sized to a 34 the guide was seated and the lug holes are drilled. Trial reduction revealed excellent patella tracking. All trial components were removed all bony surfaces were irrigated. The tibia was cemented first followed by the femur. The 10 PS Janel was seated and the knee was brought into full extension. The patella was cemented and held in place with the patellar holding clamp. After the cement had hardened, the knee sat for 2 minutes with a Betadine saline solution. The knee was then irrigated out with 2 L of pulse irrigation. The knee was closed by the PA. The extensor mechanism was closed with #2 FiberWire suture and #2 PDS suture. The subcutaneous tissue was then irrigated and closed deep with #1 PDS suture superficially with 0 PDS suture and skin was closed with skin shreya. The patient was then placed in a sterile dressing and a postoperative brace extubated and transferred to recovery room in stable condition. Anesthesia: GETEnedelia Surgeon: Ole [employer] Consultant: Starr Don Condition: stable Disposition: PACU
[2017-02-19] MEDS ORDERED: *HR* Metoprolol 5 MG/5 ML VIAL IVP PRN (14:57)
[2017-02-19 15:33] LABS: Hematocrit 36.7 % (35.3-44.9); Hemoglobin 10.9 g/dL (11.5-15.4)
[2017-02-19] MEDS ORDERED: *HR* HYDROmorphone (PF) 1 MG/ML SYRINGE IVP ONE (15:52)
[2017-02-19] MEDS ORDERED: *HR* HYDROmorphone (PF) 1 MG/ML SYRINGE ONE (15:53)
[2017-02-19] MEDS ORDERED: Ondansetron 4 MG/2 ML VIAL IVP PRN (16:59)
[2017-02-19] MEDS ORDERED: Furosemide 40 MG TABLET PO PRN (16:59)
[2017-02-19] MEDS ORDERED: *HR* OxyCODONE Immed Rel 5 MG TABLET PO PRN (16:59)
[2017-02-19] MEDS ORDERED: Naloxone 0.4 MG/ML INJ IVP PRN (16:59)
--- NOTE | 2017-02-19 17:12 | Anesthesia Evaluation Post Op ---
Date of Encounter: 02/19/17 Time of Encounter: 16:22 - Vital Signs Vital Signs: Vital Signs/O2 Sat/Glucose, Most Current Vital Signs/O2 Sat/Glucose, Most Current Temp Pulse Resp BP Pulse Ox 02/19/17 16:32 97.8 F 86 16 151/78 96 02/19/17 16:22 97.8 F 84 16 152/85 96 02/19/17 16:12 98.6 F 85 16 157/82 98 02/19/17 16:02 84 16 162/87 97 02/19/17 15:52 86 14 177/94 99 02/19/17 15:42 98.6 F 85 16 173/96 99 02/19/17 15:32 86 14 161/93 98 02/19/17 15:22 87 16 155/91 98 02/19/17 15:12 97.8 F 94 14 185/105 94 02/19/17 13:57 110 16 150/84 98 02/19/17 13:45 104 16 192/103 97 02/19/17 13:13 18 163/90 95 - Lungs Lungs: Clear Ascult./Percussion - Airway Airway: Non-obstructed - Cardiovascular Regular Rate - Mental Status Mental Status: Alert & Oriented, Answers Appropriately - Pain Pain Scale: 1 Pain Scale used: Lomas-Martin (Faces) - Nausea Vomiting Nausea Vomiting: Not Present - Hydration Hydration: Ice chips, Has not voided - Discharge PostOp Status: Transfer Patient to floor Anes Supervising Prov Stmt: Pt seen/evaluated, R&B Discussed, questions answered, and consent obtained. - MD Jonathan
[2017-02-19] MEDS: *HR* HYDROmorphone (PF) 1 MG/ML SYRINGE IVP PRN ×2 (17:17→21:04)
[2017-02-19] MEDS: *HR* Enoxaparin 30 MG/0.3 ML SYRINGE SQ SCH (17:17)
[2017-02-19] MEDS ORDERED: *HR* Enoxaparin 30 MG/0.3 ML SYRINGE SQ SCH (18:00)
[2017-02-19] MEDS: ceFAZolin 2,000 MG in D5% in Water 100 ML IVPB SCH (18:25)
[2017-02-19] MEDS ORDERED: MOM Conc 10 ML UD.LIQ PO PRN (21:00)
[2017-02-19] MEDS ORDERED: Temazepam 15 MG CAPSULE PO PRN (21:00)
[2017-02-19] MEDS ORDERED: Sennosides 8.6 MG TABLET PO PRN (21:00)
[2017-02-19] MEDS: Loratadine 10 MG TABLET PO SCH (21:03)
[2017-02-19] MEDS: Latanoprost 2.5 ML BOTTLE BOTH EYES SCH (21:10)
[2017-02-20] MEDS: ceFAZolin 2,000 MG in D5% in Water 100 ML IVPB SCH (01:00)
[2017-02-20] MEDS: *HR* HYDROmorphone (PF) 1 MG/ML SYRINGE IVP PRN ×2 (03:40→21:49)
[2017-02-20 05:26] LABS: Hematocrit 30.3 % (35.3-44.9)
[2017-02-20 05:29] LABS: Calcium 8.6 mg/dL (8.6-10.8)
[2017-02-20 05:32] LABS: Hemoglobin 9.3 g/dL (11.5-15.4)
--- NOTE | 2017-02-20 06:51 | Orthopedics Progress Note ---
Date of Encounter: 02/20/17 Time of Encounter: 06:51 - Assessment and Plan (1) CKD (chronic kidney disease) stage 4, GFR 15-29 ml/min Current Visit: No Status: Chronic (2) COPD (chronic obstructive pulmonary disease) Current Visit: No Status: Chronic Qualifiers: COPD type: unspecified COPD Qualified Code(s): J44.9 - Chronic obstructive pulmonary disease, unspecified (3) CAD (coronary artery disease) Current Visit: No Status: Chronic Qualifiers: Coronary Disease-Associated Artery/Lesion type: [place] artery [place] vs. transplanted heart: [place] heart Associated angina: without angina Qualified Code(s): I25.10 - Atherosclerotic heart disease of [place] coronary artery without angina pectoris (4) HTN (hypertension) Current Visit: No Status: Chronic Qualifiers: Hypertension type: essential hypertension Qualified Code(s): I10 - Essential (primary) hypertension (5) Arthritis of knee, right Current Visit: Yes Status: Chronic (6) Status post total knee replacement, right Current Visit: Yes Status: Acute (7) Chronic pain Current Visit: Yes Status: Chronic Qualifiers: Chronic pain type: other chronic pain Qualified Code(s): G89.29 - Other chronic pain (8) COPD (chronic obstructive pulmonary disease) Current Visit: Yes Status: Chronic Qualifiers: COPD type: unspecified COPD Qualified Code(s): J44.9 - Chronic obstructive pulmonary disease, unspecified (9) CAD (coronary artery disease) Current Visit: Yes Status: Chronic Qualifiers: Coronary Disease-Associated Artery/Lesion type: unspecified vessel or lesion type [place] vs. transplanted heart: [place] heart Associated angina: without angina Qualified Code(s): I25.10 - Atherosclerotic heart disease of [place] coronary artery without angina pectoris (10) HTN (hypertension) Current Visit: Yes Status: Chronic Qualifiers: Hypertension type: essential hypertension Qualified Code(s): I10 - Essential (primary) hypertension (11) Acute blood loss anemia Current Visit: Yes Status: Acute Subjective Interval history: Patient was seen this morning doing well without complaints. Afebrile vital signs stable. Operative extremity: Neurovascularly intact Dressing clean dry and intact Calves nontender Assessment and plan: Continue with postoperative care Hematocrit 30, creatinine 1.57 will monitor Objective Vital signs: Vital Signs Temp Pulse Resp BP Pulse Ox 02/20/17 04:23 97.8 F 96 20 138/70 96 02/20/17 00:27 97.6 F 80 19 102/64 94 02/19/17 20:25 97.8 F 103 19 146/91 91 02/19/17 18:59 97.9 F 84 17 123/64 94 02/19/17 18:03 97.9 F 86 16 138/75 94 02/19/17 17:35 97.8 F 88 16 153/80 94 02/19/17 17:07 97.8 F 84 15 155/81 95 02/19/17 17:00 97.8 F 84 15 155/81 95 02/19/17 16:32 97.8 F 86 16 151/78 96 02/19/17 16:22 97.8 F 84 16 152/85 96 02/19/17 16:12 98.6 F 85 16 157/82 98 02/19/17 16:02 84 16 162/87 97 02/19/17 15:52 86 14 177/94 99 02/19/17 15:42 98.6 F 85 16 173/96 99 02/19/17 15:32 86 14 161/93 98 02/19/17 15:22 87 16 155/91 98 02/19/17 15:12 97.8 F 94 14 185/105 94 02/19/17 13:57 110 16 150/84 98 02/19/17 13:45 104 16 192/103 97 02/19/17 13:13 18 163/90 95 02/19/17 12:28 97.7 F 101 18 163/90 95 Intake and Output 02/19/17 02/19/17 02/20/17 15:59 23:59 07:59 Intake Total 100 / 100 340 / 340 340 / 340 Output Total 200 / 200 350 / 350 Balance -100 / -100 340 / 340 -10 / -10 Intake: IV Fluids 100 / 100 100 / 100 100 / 100 Ancef Premix 2,000 MG/100 100 / 100 ML 2,000 mg In 100 ml @ 200 mls/hr IVPB PREOP ONE Rx#:[id number] Ancef 2,000 MG In 100 / 100 100 / 100 Dextrose 5% 100 ML @ 200 mls/hr IVPB Q8HR SHAQ Rx#: [id number] Oral 240 / 240 240 / 240 Output: Urine 350 / 350 Estimated Blood Loss 200 / 200 Other: # Voids 1 1 Weight 53.524 kg 84.2 kg Patient Weight 02/20/17 23:59 Weight 84.2 kg - Labs CBC & BMP: 02/20/17 04:24 02/20/17 04:24 Labs: Abnormal lab results Hgb 9.3 g/dL (11.5-15.4) L D 02/20/17 04:24 Hct 30.3 % (35.3-44.9) L 02/20/17 04:24 BUN 22 mg/dL (7-20) H 02/20/17 04:24 Creatinine 1.57 mg/dL (0.57-1.11) H 02/20/17 04:24 Est GFR ( Amer) 38 (> 60) L 02/20/17 04:24 Est GFR (Non-Af Amer) 31 (> 60) L 02/20/17 04:24 Glucose 133 mg/dL (70-99) H 02/20/17 04:24 - VTE Documentation of Mechanical Device: Venous foot pump, device Consult Discharge Plan - Plan Referrals: Jason Crane MD [Primary Care Provider] -
[2017-02-20] MEDS: Aspirin Enteric Coated 81 MG Tablet PO SCH (07:58)
[2017-02-20] MEDS: Cyanocobalamin (B-12) 1,000 MCG TABLET PO SCH (07:59)
[2017-02-20] MEDS: Valsartan 80 MG TABLET PO SCH (07:59)
[2017-02-20] MEDS: Folic Acid 1 MG TABLET PO SCH (07:59)
[2017-02-20] MEDS: *HR* OxyCODONE Immed Rel 5 MG TABLET PO PRN ×2 (07:59→12:06)
[2017-02-20] MEDS: (Roflumilast [Daliresp] 500 MCG) PO SCH (09:16)
[2017-02-20] MEDS: (Calcium Carbonate/Vitamin D3 [Calcium 600 + Vit D Ta) PO SCH (09:16)
[2017-02-20] MEDS: (Fluticasone/Vilanterol [Breo Ellipta 100-25 Mcg Inh]) IH SCH (09:29)
--- NOTE | 2017-02-20 11:54 | Event Note ---
Date of Encounter: 02/20/17 Time of Encounter: 13:17 PCR - POD#1 - Right TKR Patient seen at bedside. Confusing noted, was not on O2 last night, but she does need this on a chronic basis at 2 L Nasal cannula.Informed nursing staff. Continuous pulse ox started. Dressing 50% saturated, dressing changed, no active bleeding. Consulting respiratory therapist as well. Pain control: Chronic pain medication - [place] 10/325 QID - will stop Oxycodone, and place her back on this. Stopping IV pain medication. Will add Lidoderm patch if needed, insurance did not approve this for discharge. Participating in PT, but minimally. All questions and concerns addressed. Educated on use of incentive spirometer, ambulation, and hydration. Patient educated on post-operative restrictions and care. Addressed: See above. Family questions answered. D/C plan: - BIANKA Olivas - likely 02/22/17.
[2017-02-20] MEDS: *HR* HYDROcodone/Acet 10/325 mg TABLET PO SCH ×2 (13:00→18:14)
[2017-02-20] MEDS: *HR* Enoxaparin 30 MG/0.3 ML SYRINGE SQ SCH (18:14)
[2017-02-20] MEDS: Loratadine 10 MG TABLET PO SCH (20:28)
[2017-02-20] MEDS: Latanoprost 2.5 ML BOTTLE BOTH EYES SCH (20:29)
[2017-02-21] MEDS: *HR* HYDROcodone/Acet 10/325 mg TABLET PO SCH ×4 (00:19→18:11)
[2017-02-21] MEDS: *HR* HYDROmorphone (PF) 1 MG/ML SYRINGE IVP PRN ×2 (04:58→10:32)
[2017-02-21 05:05] LABS: Hematocrit 29.9 % (35.3-44.9); Hemoglobin 9.1 g/dL (11.5-15.4)
--- NOTE | 2017-02-21 08:19 | Orthopedics Progress Note ---
Date of Encounter: 02/21/17 Time of Encounter: 08:18 - Assessment and Plan (1) CKD (chronic kidney disease) stage 4, GFR 15-29 ml/min Current Visit: No Status: Chronic (2) COPD (chronic obstructive pulmonary disease) Current Visit: No Status: Chronic Qualifiers: COPD type: unspecified COPD Qualified Code(s): J44.9 - Chronic obstructive pulmonary disease, unspecified (3) CAD (coronary artery disease) Current Visit: No Status: Chronic Qualifiers: Coronary Disease-Associated Artery/Lesion type: [place] artery [place] vs. transplanted heart: [place] heart Associated angina: without angina Qualified Code(s): I25.10 - Atherosclerotic heart disease of [place] coronary artery without angina pectoris (4) HTN (hypertension) Current Visit: No Status: Chronic Qualifiers: Hypertension type: essential hypertension Qualified Code(s): I10 - Essential (primary) hypertension (5) Arthritis of knee, right Current Visit: Yes Status: Chronic (6) Status post total knee replacement, right Current Visit: Yes Status: Acute (7) Chronic pain Current Visit: Yes Status: Chronic Qualifiers: Chronic pain type: other chronic pain Qualified Code(s): G89.29 - Other chronic pain (8) COPD (chronic obstructive pulmonary disease) Current Visit: Yes Status: Chronic Qualifiers: COPD type: unspecified COPD Qualified Code(s): J44.9 - Chronic obstructive pulmonary disease, unspecified (9) CAD (coronary artery disease) Current Visit: Yes Status: Chronic Qualifiers: Coronary Disease-Associated Artery/Lesion type: unspecified vessel or lesion type [place] vs. transplanted heart: [place] heart Associated angina: without angina Qualified Code(s): I25.10 - Atherosclerotic heart disease of [place] coronary artery without angina pectoris (10) HTN (hypertension) Current Visit: Yes Status: Chronic Qualifiers: Hypertension type: essential hypertension Qualified Code(s): I10 - Essential (primary) hypertension (11) Acute blood loss anemia Current Visit: Yes Status: Acute Subjective Interval history: Patient was seen this morning doing well without complaints. Afebrile vital signs stable. Operative extremity: Neurovascularly intact Dressing clean dry and intact Calves nontender Assessment and plan: Continue with postoperative care Hemoglobin 9.1 symptomatic transfuse 1 unit. Objective Vital signs: Vital Signs Temp Pulse Resp BP Pulse Ox 02/21/17 06:43 98.4 F 122 18 160/78 96 02/21/17 04:51 120 18 168/82 02/21/17 00:49 98.3 F 120 20 145/74 97 02/20/17 19:56 98.3 F 121 20 169/83 94 02/20/17 15:37 98.3 F 119 16 187/90 95 02/20/17 12:22 97.3 F L 93 18 123/60 97 Intake and Output 02/20/17 02/21/17 02/21/17 23:59 07:59 15:59 Intake Total 225 / 225 Balance 225 / 225 Intake: Oral 225 / 225 Other: Meal Dinner Percent of Meal Consumed 0% # Voids 1 - Labs CBC & BMP: 02/21/17 04:38 02/21/17 04:38 Labs: Abnormal lab results Hgb 9.1 g/dL (11.5-15.4) L 02/21/17 04:38 Hct 29.9 % (35.3-44.9) L 02/21/17 04:38 Chloride 110 mEq/L (98-109) H 02/21/17 04:38 BUN 27 mg/dL (7-20) H 02/21/17 04:38 Creatinine 1.61 mg/dL (0.57-1.11) H 02/21/17 04:38 Est GFR ( Amer) 37 (> 60) L 02/21/17 04:38 Est GFR (Non-Af Amer) 31 (> 60) L 02/21/17 04:38 Glucose 107 mg/dL (70-99) H 02/21/17 04:38 - VTE Documentation of Mechanical Device: Venous foot pump, device Consult Discharge Plan - Plan Referrals: Jason Crane MD [Primary Care Provider] -
[2017-02-21] MEDS: (Calcium Carbonate/Vitamin D3 [Calcium 600 + Vit D Ta) PO SCH (08:44)
[2017-02-21] MEDS: (Fluticasone/Vilanterol [Breo Ellipta 100-25 Mcg Inh]) IH SCH (08:44)
[2017-02-21] MEDS: (Roflumilast [Daliresp] 500 MCG) PO SCH (08:44)
[2017-02-21] MEDS: Cyanocobalamin (B-12) 1,000 MCG TABLET PO SCH (08:52)
[2017-02-21] MEDS: Valsartan 80 MG TABLET PO SCH (08:53)
[2017-02-21] MEDS: Folic Acid 1 MG TABLET PO SCH (08:53)
[2017-02-21] MEDS: Aspirin Enteric Coated 81 MG Tablet PO SCH (08:53)
--- NOTE | 2017-02-21 11:26 | Event Note ---
Date of Encounter: 02/21/17 Time of Encounter: 12:00 PCR - POD#2 - Right TKR Patient seen at bedside. No family available. Confusion noted, was not on O2 last night, but she does need this on a chronic basis at 2 L Nasal cannula.Informed nursing staff. Continuous pulse ox ordered. Dressing clean. Consulting respiratory therapist as well. Patient has audible respiratory congestion and intermittent cough. Pain control: Chronic pain medication - [place] 10/325 QID - will stop Oxycodone, and place her back on this. IV pain medication stopped. Will add Lidoderm patch if needed, insurance did not approve this for discharge. Participating in PT, but minimally - patient running tachy - to be put on telemetry - may consult hospitalist if continues. Patient receiving PRBCs. All questions and concerns addressed. Educated on use of incentive spirometer, ambulation, and hydration. Patient educated on post-operative restrictions and care. Addressed: See above. D/C plan: - BIANKA Olivas - likely 02/22/17 if stable.
[2017-02-21] MEDS ORDERED: 0.9 % Sodium Chloride 250 ML ONE (12:23)
--- NOTE | 2017-02-21 14:17 | Electrocardiograph Report ---
[place] [id number] Test Date: 2017-02-21 Pat Name: Ronal CernaTelesocial Department: 114 Room: [facility] Gender: F Crime Investigator Special Agent: JJG : [id number] Requested By: Ole Moya Order Number: [id number] Reading MD: Bandar Barlow MD Measurements Intervals [place] Rate: 120 P: 67 CT: 142 QRS: -1 QRSD: 85 T: 38 QT: 315 QTc: 387 Interpretive Statements SINUS TACHYCARDIA BASELINE ARTIFACT Electronically Signed On 02-21-2017 14:15:58 EDT by Bandar Barlow MD
--- NOTE | 2017-02-21 16:02 | Event Note ---
Date of Encounter: 02/21/17 Time of Encounter: 15:59 1. Confusion, acute encephalopathy unclear etiology, volume overload with bilateral small pleural effusions, received a unit of blood Start Lasix IV, check an echocardiogram Strict I's and O's and daily weight. Check ABG, consider BiPAP if hypercapnic If not improving we will consider doing a VQ scan 2. Hypertension stable 3. Tachycardia is persistent unclear etiology, unlikely GI bleed as the patient has not had a bowel movement in a couple of days 4. Acute anemia likely secondary to blood loss during surgery, also possible dilutional from volume overload 5. Recent right total knee replacement, follow orthopedic surgery recommendations 6. Chronic kidney disease of stage 3/4, stable Use Protonix for GI prophylaxis and Lovenox for DVT prophylaxis (will hold Lovenox if anemia worsens) Acute for allowing us to participate in the care of his patient. Call with any questions. Counseled not to be dictated by ELECTRIC RANGE [employer]PARER Yolie Mcdonald Time spent on this consult 40 minutes
--- NOTE | 2017-02-21 16:17 | Internal Medicine Consult Note ---
Date of Encounter: 02/21/17 Time of Encounter: 16:00 - Assessment and Plan (1) Tachycardia Current Visit: Yes Status: Acute Assessment and plan: 1 patient has had a persistent tachycardia since yesterday hemoglobin was 9.1 which was replaced with 1 unit PRBCs will continue to monitor H&H. 2 possibly related to fluid overload. We will hold IV fluids for now and give IV Lasix 3 monitor intake and output daily weights 4 obtain echocardiogram 5 continuous cardiac monitoring 6 is no improvement we will consider possible VQ scan due to patient has renal issues 7 we will check ABG-consider BiPAP if hypercapnic (2) Acute encephalopathy Current Visit: Yes Status: Acute Assessment and plan: 1. Patient is somewhat confused unclear etiology-we will obtain ABG continue with oxygen consider BiPAP if hypercapnic 2 monitor CBC for leukocytosis 3 check urinalysis (3) Acute blood loss anemia Current Visit: Yes Status: Acute Assessment and plan: 1 patient status post right total knee replacement hemoglobin is down to 9.1 most likely secondary to blood loss during surgery-or from possible volume overload. Patient was given 1 unit of PRBCs will continue to monitor (4) Status post total knee replacement, right Current Visit: Yes Status: Acute Assessment and plan: 1 status post total right knee replacement-being followed by orthopedics (5) COPD (chronic obstructive pulmonary disease) Current Visit: No Status: Chronic Assessment and plan: 1 S PO2 is 93% on room air. We will continue with oxygen titrated maintain SPO2 greater than 92% 2 bronchodilators Qualifiers: COPD type: unspecified COPD Qualified Code(s): J44.9 - Chronic obstructive pulmonary disease, unspecified (6) CKD (chronic kidney disease) stage 4, GFR 15-29 ml/min Current Visit: No Status: Chronic Assessment and plan: 1 patient slight bump in creatinine 1.61-we will diurese patient and monitor creatinine 2 monitor intake and output daily weight 3 avoid nephrotoxins (7) HTN (hypertension) Current Visit: No Status: Chronic Assessment and plan: Presently stable we will continue to monitor Qualifiers: Hypertension type: essential hypertension Qualified Code(s): I10 - Essential (primary) hypertension Internal Medicine - CN: HPI - Data of Consult Patient: new to practice Consult date: 02/21/17 Requesting Physician: Ole Moya MD - Consult Narrative Reason for consult: Medical managment - tachycardia History of present illness: Ms. Condon is a 81 year old female past medical history of hypertension anemia CK D stage IV COPD oxygen dependent hyperlipidemia. Patient was admitted to this hospital and underwent a right total knee replacement 2016. Patient developed tachycardia/confusion-lab work revealed hemoglobin of 9.1 which is down from previous of 10.9 as well as a slight increase in her creatinine 1.6 on. Chest x-ray did show small pleural effusion bilaterally. Hospitalists were consulted for medical management tachycardia/confusion. Patient does appear to be some volume overload scattered crackles and small pleural effusion previous echo dated 2015 showed EF 55%-60%. Patient's SPO2 is 93% on room air. She does not appear to be restricted distress right now. Heart sounds are regular S1 and S2 no pedal edema noted. Incision to the right knee was aspirated with no signs or symptoms of infection. Presently heart rate is 109. She denies any fevers chills nausea vomiting diarrhea and abdominal pain and has pictures of breath I reviewed this case with Dr Santos who agrees with plan Past Med Surg Social Fam HX - Past Medical History Medical history: COPD, coronary artery disease, CVA, hyperlipidemia, hypertension, myocardial infarction, renal disease Psychiatric history: no psych history - Past Surgical History Surgical History: cholecystectomy, herniorrhaphy, hysterectomy, orthopedic, other - Social History Smoking Status: Former smoker Smokeless Tobacco Status: No Alcohol use: none Drug use: none - Family History Mother Living Status: Father Living Status: Cause of : [place] Hx Family Cardiac Disorders: Yes (ME) - Constitutional Constitutional: as per HPI - Cardiovascular Cardiovascular ROS IM: as per HPI - Respiratory Respiratory: as per HPI - Musculoskeletal Musculoskeletal ROS IM: arthralgias, joint swelling - Neurological Neurological ROS: as per HPI Internal Medicine - CN: Meds Albuterol Neb [Proventil Neb] 2.5 mg IH TID PRN 02/19/17 [History] Albuterol Sulfate [Ventolin Hfa] 2 puff IH Q4H PRN 02/19/17 [History] Aspirin [Lo-Dose Aspirin EC] 81 mg PO DAILY 02/19/17 [History] Bisacodyl [Dulcolax] 10 mg RC DAILY 02/19/17 [History] Brimonidine 0.2% [Alphagan] 1 drop BOTH EYES BID 02/19/17 [History] Calcium Carbonate/Vitamin D3 [Calcium 600 + Vit D Tablet] 1 tab PO DAILY [History] Cetirizine HCl [All Day Allergy] 10 mg PO HS 02/19/17 [History] Cyanocobalamin (Vitamin B-12) [Vitamin B12] 1,000 mcg PO DAILY 02/19/17 [History ] Docusate Sodium [Dok] 100 mg PO DAILY PRN 02/19/17 [History] Fluticasone/Vilanterol [Breo Ellipta 100-25 Mcg INH] 1 puff IH DAILY 02/19/17 [ History] Folic Acid 0.4 mg PO DAILY 02/19/17 [History] Furosemide [Lasix] 40 mg PO DAILY PRN 02/19/17 [History] HYDROcodone/Acet 10/325 mg [[place] 10-325 mg] 1 tab PO Q6HR PRN 02/19/17 [History ] Ipratropium/Albuterol Neb [Duoneb] 3 ml IH Q6HR 02/19/17 [History] Latanoprost [Xalatan] 2.5 ml BOTH EYES HS 02/19/17 [History] Omeprazole [PriLOSEC] 20 mg PO DAILY 02/19/17 [History] Oxygen 2 l NS HS 02/19/17 [History] PrednisoLONE Acetate [Pred Forte] 1 drop OP BID MDD SEE NOTE 02/19/17 [History] Pregabalin [Lyrica] 50 mg PO BID 02/19/17 [History] Roflumilast [Daliresp] 500 mcg PO DAILY 02/19/17 [History] Simvastatin [Zocor] 20 mg PO HS 02/19/17 [History] Timolol Maleate 0.25% 1 drop BOTH EYES QAM 02/19/17 [History] Valsartan [Diovan] 80 mg PO DAILY 02/19/17 [History] Allergies morphine Adverse Reaction (Verified 02/19/17 21:08) Anaphylaxis Internal Medicine - CN: Exam - Constitutional Vitals: Temp Pulse Resp BP Pulse Ox 97.8 F 115 20 140/76 97 02/21/17 15:46 02/21/17 15:46 02/21/17 15:46 02/21/17 15:46 02/21/17 15:46 General appearance IM: Present: A&O X 2 - Head Head exam: Present: atraumatic, normocephalic - Eye Eye exam: Present: EOMI - ENT ENT exam: Present: mucous membranes moist - Respiratory Additional comments: Scattered crackles - Cardiovascular Cardiovascular exam IM: Present: RRR, +S1, +S2, tachycardia - GI/Abdominal GI/Abdominal exam IM: Present: soft - Extremities Exam Extremities exam IM: Present: warm, radial pulses palpable and symetrical - Neurological Exam Neurological exam: Present: alert, strengths equal and symetr throughout - Psychiatric Psychiatric exam: Present: normal affect - Skin Skin exam IM: Present: dry Internal Medicine - CN: Reslt - Labs CBC & Chem 7: 02/21/17 04:38 02/21/17 04:38 Labs: Short CBC 02/21/17 Range/Units 04:38 Hgb 9.1 L (11.5-15.4) g/dL Hct 29.9 L (35.3-44.9) % BMP 02/21/17 04:38 Sodium 141 Potassium 4.0 Chloride 110 H Carbon Dioxide 24 BUN 27 H Creatinine 1.61 H Glucose 107 H Calcium 9.0 - Impressions Impressions Chest X-Ray 02/21/17 07:44 IMPRESSION: Stable bibasilar opacification and small effusions. No overt failure. D/ / Maldonado Roblero MD / Maldonado Roblero MD Interpreting Provider: Maldonado Roblero MD Consult Discharge Plan - Plan Referrals: Jason Crane MD [Primary Care Provider] -
[2017-02-21] MEDS: Furosemide 40 MG/4 ML VIAL IVP SCH (16:22)
[2017-02-21 16:38] LABS: ABG HCO3 25.1 mEQ/L (21-27); ABG Oxygen Saturation 96 % (95-98); ABG PCO2 37 mmHg (35-45); ABG PH 7.44 pH Units (7.32-7.45); ABG PO2 80 mmHg (85-104); ABG TCO2 26.2 mEq/L (20-26)
[2017-02-21 16:39] LABS: Blood Gas FiO2 21 %
[2017-02-21] MEDS: *HR* Enoxaparin 30 MG/0.3 ML SYRINGE SQ SCH (18:11)
[2017-02-21] MEDS: Loratadine 10 MG TABLET PO SCH (21:13)
[2017-02-21] MEDS: Latanoprost 2.5 ML BOTTLE BOTH EYES SCH (21:19)
[2017-02-22] MEDS: *HR* HYDROcodone/Acet 10/325 mg TABLET PO SCH ×5 (00:41→23:49)
[2017-02-22 02:04] LABS: Basophils % 0.2 %; Eosinophils % 0.1 %; Hematocrit 33.1 % (35.3-44.9); Hemoglobin 10.3 g/dL (11.5-15.4); Immature Granulocytes % 1.3 % (0-4); Lymphocytes # 3.1 K/mcL (0.6-4.6); Lymphocytes % 24.6 %; Mean Corpuscular HGB Conc 31.1 g/dL (31.6-35.5); Mean Corpuscular Hemoglobin 27.8 pg (28.0-33.3); Mean Corpuscular Volume 89.2 fL (83.0-100.0); Mean Platelet Volume 10.6 fL (9.4-12.4); Monocytes # 1.5 K/mcL (0.0-1.3); Monocytes % 11.9 %; Neutrophils # 7.7 K/mcL (1.6-8.9); Platelet Count 287 K/mcL (140-400); Red Blood Count 3.71 M/mcL (3.82-4.97); Red Cell Distribution Width 15.9 % (11.5-14.5); Segmented Neutrophils % 61.9 %
[2017-02-22] MEDS: Cyanocobalamin (B-12) 1,000 MCG TABLET PO SCH (08:16)
[2017-02-22] MEDS: Aspirin Enteric Coated 81 MG Tablet PO SCH (08:16)
[2017-02-22] MEDS: Valsartan 80 MG TABLET PO SCH (08:16)
[2017-02-22] MEDS: Folic Acid 1 MG TABLET PO SCH (08:16)
[2017-02-22] MEDS: (Calcium Carbonate/Vitamin D3 [Calcium 600 + Vit D Ta) PO SCH (08:24)
[2017-02-22] MEDS: Furosemide 40 MG/4 ML VIAL IVP SCH ×2 (08:24→16:49)
[2017-02-22] MEDS: (Fluticasone/Vilanterol [Breo Ellipta 100-25 Mcg Inh]) IH SCH (08:24)
[2017-02-22] MEDS: (Roflumilast [Daliresp] 500 MCG) PO SCH (08:24)
--- NOTE | 2017-02-22 08:32 | Orthopedics Progress Note ---
Date of Encounter: 02/22/17 Time of Encounter: 08:31 - Assessment and Plan (1) CKD (chronic kidney disease) stage 4, GFR 15-29 ml/min Current Visit: No Status: Chronic (2) COPD (chronic obstructive pulmonary disease) Current Visit: No Status: Chronic Qualifiers: COPD type: unspecified COPD Qualified Code(s): J44.9 - Chronic obstructive pulmonary disease, unspecified (3) CAD (coronary artery disease) Current Visit: No Status: Chronic Qualifiers: Coronary Disease-Associated Artery/Lesion type: [place] artery [place] vs. transplanted heart: [place] heart Associated angina: without angina Qualified Code(s): I25.10 - Atherosclerotic heart disease of [place] coronary artery without angina pectoris (4) HTN (hypertension) Current Visit: No Status: Chronic Qualifiers: Hypertension type: essential hypertension Qualified Code(s): I10 - Essential (primary) hypertension (5) Arthritis of knee, right Current Visit: Yes Status: Chronic (6) Status post total knee replacement, right Current Visit: Yes Status: Acute (7) Chronic pain Current Visit: Yes Status: Chronic Qualifiers: Chronic pain type: other chronic pain Qualified Code(s): G89.29 - Other chronic pain (8) COPD (chronic obstructive pulmonary disease) Current Visit: No Status: Chronic Qualifiers: COPD type: unspecified COPD Qualified Code(s): J44.9 - Chronic obstructive pulmonary disease, unspecified (9) CAD (coronary artery disease) Current Visit: Yes Status: Chronic Qualifiers: Coronary Disease-Associated Artery/Lesion type: unspecified vessel or lesion type [place] vs. transplanted heart: [place] heart Associated angina: without angina Qualified Code(s): I25.10 - Atherosclerotic heart disease of [place] coronary artery without angina pectoris (10) HTN (hypertension) Current Visit: Yes Status: Chronic Qualifiers: Hypertension type: essential hypertension Qualified Code(s): I10 - Essential (primary) hypertension (11) Acute blood loss anemia Current Visit: Yes Status: Acute Subjective Interval history: Patient was seen this morning still was some confusion, medical consult appreciated. Afebrile vital signs stable. Operative extremity: Neurovascularly intact Dressing clean dry and intact Calves nontender Assessment and plan: Continue with postoperative care Plan as per medical team Objective Vital signs: Vital Signs Temp Pulse Resp BP Pulse Ox 02/22/17 07:00 98.9 F 119 16 143/81 96 02/21/17 23:55 99.4 F 118 18 145/77 98 02/21/17 16:35 18 96 02/21/17 15:46 97.8 F 115 20 140/76 97 02/21/17 12:53 98.5 F 115 18 144/72 96 02/21/17 12:33 98.6 F 118 17 110/77 95 02/21/17 11:27 98.3 F 100 18 148/80 93 Intake and Output 02/21/17 02/22/17 02/22/17 23:59 07:59 15:59 Other: # Voids 4 # Urine Diapers 1 4 - Labs CBC & BMP: 02/22/17 01:16 02/21/17 04:38 Labs: Abnormal lab results WBC 12.5 K/mcL (4.3-11.1) H 02/22/17 01:16 RBC 3.71 M/mcL (3.82-4.97) L 02/22/17 01:16 Hgb 10.3 g/dL (11.5-15.4) L 02/22/17 01:16 Hct 33.1 % (35.3-44.9) L 02/22/17 01:16 MCH 27.8 pg (28.0-33.3) L 02/22/17 01:16 MCHC 31.1 g/dL (31.6-35.5) L 02/22/17 01:16 RDW 15.9 % (11.5-14.5) H 02/22/17 01:16 Monocytes # 1.5 K/mcL (0.0-1.3) H 02/22/17 01:16 ABG pO2 80 mmHg (85-104) L 02/21/17 16:26 ABG Total CO2 26.2 mEq/L (20-26) H 02/21/17 16:26 Chloride 110 mEq/L (98-109) H 02/21/17 04:38 BUN 27 mg/dL (7-20) H 02/21/17 04:38 Creatinine 1.61 mg/dL (0.57-1.11) H 02/21/17 04:38 Est GFR ( Amer) 37 (> 60) L 02/21/17 04:38 Est GFR (Non-Af Amer) 31 (> 60) L 02/21/17 04:38 Glucose 107 mg/dL (70-99) H 02/21/17 04:38 - VTE Documentation of Mechanical Device: Intermittent pneumatic compression device Consult Discharge Plan - Plan Referrals: Jason Crane MD [Primary Care Provider] -
[2017-02-22 10:06] LABS: Bilirubin,Urine Negative (Negative); Blood,Urine Negative (Negative); Clarity,Urine Clear (Clear); Color,Urine Yellow (Yellow); Glucose,Urine (UA) Normal (Normal); Ketones,Urine Negative (Negative); Leukocyte Esterase,Urine Negative (Negative); Nitrite,Urine Negative (Negative); Protein,Urine Negative (Neg-Trace); Specific Gravity,Urine 1.011 (1.010-1.025); Urobilinogen,Urine Normal (Normal)
--- NOTE | 2017-02-22 11:28 | Event Note ---
Date of Encounter: 02/22/17 Time of Encounter: 11:25 PCR - POD#3 - Right TKR Patient seen at bedside. Hospitalist consulted 02/21/17 for tachycardia and confusion. Concerns for volume overload. VQ scan - IMPRESSION: Low Probability for Pulmonary Embolus. and echocardiogram was put on hold due to tachycardia. Confusion noted, Continue 2 L Nasal cannula.Informed nursing staff. Continuous pulse ox to be continued. Continue respiratory therapist Pain control: Chronic pain medication - [place] 10/325 QID - will stop Oxycodone, and place her back on this. IV pain medication stopped. Continue Lidoderm patch if needed, insurance did not approve this for discharge. Participating in PT, but minimally - continue telemetry Patient received 1 unit PRBCs 02/21/17. All questions and concerns addressed. Educated on use of incentive spirometer, ambulation, and hydration. Patient educated on post-operative restrictions and care. Addressed: See above. D/C plan: - [facility] Olivas - not currently stable for discharge
[2017-02-22] MEDS ORDERED: *HR* Metoprolol 5 MG/5 ML VIAL IVP PRN (14:44)
--- NOTE | 2017-02-22 14:47 | Internal Med Progress Note ---
Date of Encounter: 02/22/17 Time of Encounter: 14:45 - Assessment and plan (1) Tachycardia Current Visit: Yes Status: Acute Assessment and plan: Noted to have new onset of sinus tachycardia. Uncertain etiology. Currently noted to be improving with heart rate in high 90s to low 100s. No evidence of infection-chest x-ray shows no focal infiltrates, urinalysis is not suggestive of infection. Ventilation perfusion lung scan shows low probability for pulmonary embolism. We will check right leg venous Doppler for DVT. Start low- dose IV metoprolol as needed to maintain heart rate below 110 to complete 2-D echocardiogram. Patient was noted to be volume overloaded yesterday and she was started on IV Lasix, responded well. Continue appropriate pain control. (2) Acute blood loss anemia Current Visit: Yes Status: Resolved Assessment and plan: Related to total knee replacement. Hemoglobin improved today, received 1 unit PRBC transfusion yesterday. (3) Acute encephalopathy Current Visit: Yes Status: Resolved Assessment and plan: Mental status noted to be improving, alert and oriented to person and place and was able to answer appropriately upon my evaluation today. (4) Status post total knee replacement, right Current Visit: Yes Status: Acute Assessment and plan: Status post right total knee replacement on 02/19/17. Continue pain control, PT ; discharge pending to rehab facility when medically stable. (5) CKD (chronic kidney disease) stage 4, GFR 15-29 ml/min Current Visit: Yes Status: Chronic Assessment and plan: Serum creatinine at baseline. Continue to monitor closely as the patient is on IV Lasix. (6) COPD (chronic obstructive pulmonary disease) Current Visit: Yes Status: Chronic Assessment and plan: Not noted to be in acute exacerbation. Patient is noted to be on home oxygen. When necessary bronchodilators. Continue supplemental oxygen as needed, wean down FiO2 as tolerated. Qualifiers: COPD type: unspecified COPD Qualified Code(s): J44.9 - Chronic obstructive pulmonary disease, unspecified (7) CAD (coronary artery disease) Current Visit: Yes Status: Chronic Qualifiers: Coronary Disease-Associated Artery/Lesion type: [place] artery [place] vs. transplanted heart: [place] heart Associated angina: without angina Qualified Code(s): I25.10 - Atherosclerotic heart disease of [place] coronary artery without angina pectoris (8) HTN (hypertension) Current Visit: Yes Status: Chronic Qualifiers: Hypertension type: essential hypertension Qualified Code(s): I10 - Essential (primary) hypertension - Subjective Interval history: Reports pain in right knee and leg, worse with movement and bearing weight. No chest pain, shortness of breath. - Constitutional Vitals: Temp Pulse Resp BP Pulse Ox 99.2 F 125 16 147/78 95 02/22/17 10:56 02/22/17 10:56 02/22/17 10:56 02/22/17 10:56 02/22/17 10:56 General appearance: Present: A&O X 2, answers questions appropriately - Respiratory Respiratory exam: Present: CTAB. Absent: accessory muscle use, rales, rhonchi, wheezes - Cardiovascular Cardiovascular exam: Present: RRR, +S1, +S2, tachycardia. Absent: diastolic murmur, gallop, rubs, systolic murmur - GI/Abdominal GI/Abdominal exam: Present: normal bowel sounds, soft, no peritoneal signs. Absent: distended, tenderness - Extremities Exam Extremities exam: Present: pedal edema (Right lower extremity-status post total knee replacement. Diffuse edema, tenderness and minimal erythema involving right leg and foot distal to the knee joint.), warm, radial pulses palpable and symetrical. Absent: calf tenderness, cyanotic Internal Medicine: Result - Labs CBC & Chem 7: 02/22/17 01:16 02/21/17 04:38 Labs: Short CBC 02/22/17 Range/Units 01:16 WBC 12.5 H (4.3-11.1) K/mcL Hgb 10.3 L (11.5-15.4) g/dL Hct 33.1 L (35.3-44.9) % Plt Count 287 (140-400) K/mcL Neutrophils # 7.7 (1.6-8.9) K/mcL Urine 02/22/17 Range/Units 09:44 Urine Color Yellow (Yellow) Urine Clarity Clear (Clear) Urine pH 6.0 (5.0-8.0) pH Units Ur Specific [place] 1.011 (1.010-1.025) Urine Protein Negative (Neg-Trace) mg/dL Urine Glucose (UA) Normal (Normal) mg/dL - ABG Interpretation ABG results: ABG ABG pH 7.44 pH Units (7.32-7.45) 07/26/17 16:26 ABG pCO2 37 mmHg (35-45) 02/21/17 16:26 ABG pO2 80 mmHg (85-104) L 02/21/17 16:26 ABG O2 Saturation 96 % (95-98) 02/21/17 16:26 - Impressions Impressions Pulmonary Perfusion Imaging 02/22/17 08:24 IMPRESSION: Low Probability for Pulmonary Embolus. D/ / Maldonado Roblero MD / Maldonado Roblero MD Interpreting Provider: Maldonado Roblero MD Chest X-Ray 02/22/17 11:23 IMPRESSION: Stable chest. Dependent left basilar opacification and effusion, likely chronic. D/ / Maldonado Roblero MD / Maldonado Roblero MD Interpreting Provider: Maldonado Roblero MD - VTE Documentation of Mechanical Device: Venous foot pump, device Consult Discharge Plan - Plan Referrals: Jason Crane MD [Primary Care Provider] -
[2017-02-22] MEDS: *HR* Enoxaparin 30 MG/0.3 ML SYRINGE SQ SCH (16:49)
--- NOTE | 2017-02-22 17:26 | Venous Imaging Report ---
LE Venous Duplex Patient Name:Ronal Condon Order Number:[id number] Procedure Date:02/22/2017 Date:1935ge:81 yrs Gender:Female Location:[facility] Room #: 3NE28 Sales Clerk:Ade Noyola RDCS Referring MD:Shanta Wade MD spacecraft systems engineer:Jason Crane M.D. Reading MD:Toni Puente MD , FACS Primary Indications:Swelling of limb Secondary Indications: Risk Factors Yes/No Recent Surgery Yes Impressions: Right lower extremity: normal superficial and deep exam. Recommendations: Preliminary noted in pt EMR and given to pt RN. Test completed on 02/22/2017 at 4:05:00 pm. Findings Venous Duplex Results: Right: Venous imaging of the lower extremity reveals full patency and normal vessel compressibility of the right distal iliac, right common femoral, right superficial femoral, right popliteal, right posterior tibial, right peroneal, right great saphenous and right lesser saphenous. Doppler signals in the evaluated veins were normal. Prior Study: No prior study available for comparison. Lower Extremity Venous Duplex Side Vein Compress Spontaneous Flow Augment Diameter (cm) Depth (cm) Right Distal Iliac Normal Yes Phasic Yes Right Common Femoral Normal Yes Phasic Yes Right Superficial Femoral Normal Yes Phasic Yes Right Popliteal Normal Yes Phasic Yes Right Posterior Tibial Normal Yes Phasic Yes Right Peroneal Normal Yes Phasic Yes Right Great Saphenous Normal Yes Phasic Yes Right Lesser Saphenous Normal Yes Phasic Yes Updated by Toni Puente MD, FACS on 02/22/2017 5:20:46 PM Toni Puente MD electronically signed on 02/22/2017 5:21:00 PM with status of Final
[2017-02-22] MEDS: Loratadine 10 MG TABLET PO SCH (21:45)
[2017-02-22] MEDS: Latanoprost 2.5 ML BOTTLE BOTH EYES SCH (21:45)
[2017-02-23] MEDS: *HR* HYDROcodone/Acet 10/325 mg TABLET PO SCH ×2 (05:44→14:00)
--- NOTE | 2017-02-23 06:39 | Orthopedics Progress Note ---
Date of Encounter: 02/23/17 Time of Encounter: 06:38 - Assessment and Plan (1) CKD (chronic kidney disease) stage 4, GFR 15-29 ml/min Current Visit: Yes Status: Chronic (2) COPD (chronic obstructive pulmonary disease) Current Visit: No Status: Chronic Qualifiers: COPD type: unspecified COPD Qualified Code(s): J44.9 - Chronic obstructive pulmonary disease, unspecified (3) CAD (coronary artery disease) Current Visit: No Status: Chronic Qualifiers: Coronary Disease-Associated Artery/Lesion type: [place] artery [place] vs. transplanted heart: [place] heart Associated angina: without angina Qualified Code(s): I25.10 - Atherosclerotic heart disease of [place] coronary artery without angina pectoris (4) HTN (hypertension) Current Visit: No Status: Chronic Qualifiers: Hypertension type: essential hypertension Qualified Code(s): I10 - Essential (primary) hypertension (5) Arthritis of knee, right Current Visit: Yes Status: Chronic (6) Status post total knee replacement, right Current Visit: Yes Status: Acute (7) Chronic pain Current Visit: Yes Status: Chronic Qualifiers: Chronic pain type: other chronic pain Qualified Code(s): G89.29 - Other chronic pain (8) COPD (chronic obstructive pulmonary disease) Current Visit: Yes Status: Chronic Qualifiers: COPD type: unspecified COPD Qualified Code(s): J44.9 - Chronic obstructive pulmonary disease, unspecified (9) CAD (coronary artery disease) Current Visit: Yes Status: Chronic Qualifiers: Coronary Disease-Associated Artery/Lesion type: [place] artery [place] vs. transplanted heart: [place] heart Associated angina: without angina Qualified Code(s): I25.10 - Atherosclerotic heart disease of [place] coronary artery without angina pectoris (10) HTN (hypertension) Current Visit: Yes Status: Chronic Qualifiers: Hypertension type: essential hypertension Qualified Code(s): I10 - Essential (primary) hypertension (11) Acute blood loss anemia Current Visit: Yes Status: Resolved (12) Acute encephalopathy Current Visit: Yes Status: Acute (13) Tachycardia Current Visit: Yes Status: Acute Subjective Interval history: Patient was seen this morning confusion less this morning doing better Afebrile vital signs stable. Operative extremity: Neurovascularly intact Dressing clean dry and intact Calves nontender Assessment and plan: Continue with postoperative care Plan as per medical team will discharge if cleared Objective Vital signs: Vital Signs Temp Pulse Resp BP Pulse Ox 02/23/17 04:35 98.2 F 100 16 127/77 98 02/22/17 23:59 98.0 F 113 16 128/81 97 02/22/17 16:45 104 133/76 96 02/22/17 15:21 115 02/22/17 14:29 98.8 F 119 16 151/83 96 02/22/17 10:56 99.2 F 125 16 147/78 95 02/22/17 07:00 98.9 F 119 16 143/81 96 Intake and Output 02/22/17 02/22/17 02/23/17 15:59 23:59 07:59 Intake Total 60 / 60 Output Total 1050 / 1050 200 / 200 50 / 50 Balance -1050 / -1050 -200 / -200 10 / 10 Intake: Oral 60 / 60 Output: Urine 1050 / 1050 200 / 200 50 / 50 Other: # Urine Diapers 1 Weight 71 kg Patient Weight 02/23/17 23:59 Weight 71 kg - Labs CBC & BMP: 02/22/17 01:16 02/21/17 04:38 Labs: Abnormal lab results WBC 12.5 K/mcL (4.3-11.1) H 02/22/17 01:16 RBC 3.71 M/mcL (3.82-4.97) L 02/22/17 01:16 Hgb 10.3 g/dL (11.5-15.4) L 02/22/17 01:16 Hct 33.1 % (35.3-44.9) L 02/22/17 01:16 MCH 27.8 pg (28.0-33.3) L 02/22/17 01:16 MCHC 31.1 g/dL (31.6-35.5) L 02/22/17 01:16 RDW 15.9 % (11.5-14.5) H 02/22/17 01:16 Monocytes # 1.5 K/mcL (0.0-1.3) H 02/22/17 01:16 ABG pO2 80 mmHg (85-104) L 02/21/17 16:26 ABG Total CO2 26.2 mEq/L (20-26) H 02/21/17 16:26 Chloride 110 mEq/L (98-109) H 02/21/17 04:38 BUN 27 mg/dL (7-20) H 02/21/17 04:38 Creatinine 1.61 mg/dL (0.57-1.11) H 02/21/17 04:38 Est GFR ( Amer) 37 (> 60) L 02/21/17 04:38 Est GFR (Non-Af Amer) 31 (> 60) L 02/21/17 04:38 Glucose 107 mg/dL (70-99) H 02/21/17 04:38 - VTE Documentation of Mechanical Device: Venous foot pump, device Consult Discharge Plan - Plan Referrals: Jason Crane MD [Primary Care Provider] -
[2017-02-23] MEDS: Valsartan 80 MG TABLET PO SCH (08:05)
[2017-02-23] MEDS: Furosemide 40 MG/4 ML VIAL IVP SCH ×2 (08:05→18:21)
[2017-02-23] MEDS: Folic Acid 1 MG TABLET PO SCH (08:06)
[2017-02-23] MEDS: Aspirin Enteric Coated 81 MG Tablet PO SCH (08:06)
[2017-02-23] MEDS: Cyanocobalamin (B-12) 1,000 MCG TABLET PO SCH (08:06)
[2017-02-23] MEDS: (Roflumilast [Daliresp] 500 MCG) PO SCH (08:08)
[2017-02-23] MEDS: (Calcium Carbonate/Vitamin D3 [Calcium 600 + Vit D Ta) PO SCH (08:08)
[2017-02-23] MEDS: (Fluticasone/Vilanterol [Breo Ellipta 100-25 Mcg Inh]) IH SCH (08:08)
--- NOTE | 2017-02-23 12:33 | Event Note ---
Date of Encounter: 02/23/17 Time of Encounter: 12:30 PCR - POD#4 - Right TKR Patient seen at bedside. Hospitalist consulted 02/21/17 for tachycardia and confusion. Concerns for volume overload. VQ scan - IMPRESSION: Low Probability for Pulmonary Embolus. and echocardiogram was put on hold due to tachycardia. Confusion improved, Continue 2 L Nasal cannula. Informed nursing staff. Continuous pulse ox to be continued. Continue respiratory therapy Pain control: Chronic pain medication - [place] 10/325 QID - Oxycodone stopped and [place] resumed yesterday. IV pain medication was d/c yesterday. Continue Lidoderm patch if needed, insurance did not approve this for discharge. Participating in PT, but minimally - patient states has been getting in and out for potty chair regularly Patient received 1 unit PRBCs 02/21/17. All questions and concerns addressed. Educated on use of incentive spirometer, ambulation, and hydration. Patient educated on post-operative restrictions and care. Addressed: See above. D/C plan: - BIANK[facility] Olivas - from orthopedic standpoint ready for discharge so long as int med team clears.
[2017-02-23 14:48] VITALS: BP 136/77
--- NOTE | 2017-02-23 16:45 | Internal Med Progress Note ---
Date of Encounter: 02/23/17 Time of Encounter: 12:45 - Assessment and plan (1) Tachycardia Current Visit: Yes Status: Resolved Assessment and plan: Sinus tachycardia likely due to recent surgery, pain and hypoxia. Currently improved. Workup has been negative. No evidence of infection-chest x-ray shows no focal infiltrates, urinalysis is not suggestive of infection. Ventilation perfusion lung scan shows low probability for pulmonary embolism. right leg venous Doppler is negative for DVT. Echocardiogram was done which shows ejection fraction 50%, mild left ventricular diastolic dysfunction, small pericardial effusion. Patient was noted to be volume overloaded and was started on IV Lasix, responding well. Continue appropriate pain control. Medically stable for discharge to rehab facility. (2) Acute blood loss anemia Current Visit: Yes Status: Resolved (3) Acute encephalopathy Current Visit: Yes Status: Resolved (4) Status post total knee replacement, right Current Visit: Yes Status: Acute (5) CKD (chronic kidney disease) stage 4, GFR 15-29 ml/min Current Visit: Yes Status: Chronic (6) COPD (chronic obstructive pulmonary disease) Current Visit: Yes Status: Chronic Qualifiers: COPD type: unspecified COPD Qualified Code(s): J44.9 - Chronic obstructive pulmonary disease, unspecified (7) CAD (coronary artery disease) Current Visit: Yes Status: Chronic Qualifiers: Coronary Disease-Associated Artery/Lesion type: [place] artery [place] vs. transplanted heart: [place] heart Associated angina: without angina Qualified Code(s): I25.10 - Atherosclerotic heart disease of [place] coronary artery without angina pectoris (8) HTN (hypertension) Current Visit: Yes Status: Chronic Qualifiers: Hypertension type: essential hypertension Qualified Code(s): I10 - Essential (primary) hypertension - Subjective Interval history: Doing much better today. Improving right leg pain. Eager to be discharged to rehabilitation. - Constitutional Vitals: Temp Pulse Resp BP Pulse Ox 98.2 F 85 17 136/77 96 02/23/17 14:47 02/23/17 14:47 02/23/17 14:47 02/23/17 14:47 02/23/17 14:47 General appearance: Present: A&O X 2, answers questions appropriately - Respiratory Respiratory exam: Present: CTAB. Absent: accessory muscle use, rales, rhonchi, wheezes - Cardiovascular Cardiovascular exam: Present: RRR, +S1, +S2. Absent: diastolic murmur, gallop, rubs, systolic murmur Internal Medicine: Result - Labs CBC & Chem 7: 02/22/17 01:16 02/21/17 04:38 - ABG Interpretation ABG results: ABG ABG pH 7.44 pH Units (7.32-7.45) 02/21/17 16:26 ABG pCO2 37 mmHg (35-45) 02/21/17 16:26 ABG pO2 80 mmHg (85-104) L 02/21/17 16:26 ABG O2 Saturation 96 % (95-98) 02/21/17 16:26 - VTE Documentation of Mechanical Device: Venous foot pump, device Consult Discharge Plan - Plan Referrals: Jason Crane MD [Primary Care Provider] -
[2017-02-23] MEDS: *HR* Enoxaparin 30 MG/0.3 ML SYRINGE SQ SCH (18:19)
== END 2017-02-23 19:09 | DRG 469 ==
LOC: SAMDAY 11:46 → 3NENU 17:08
PROVIDERS: ADMIT Orthopaedic Surgery; ATTEND Orthopaedic Surgery

== ENCOUNTER 2017-05-02 12:36 | Observation (INO) ==
--- NOTE | 2017-05-02 12:59 | Emergency Department Note ---
Disposition Clinical Impression: Anuria and oliguria CKD (chronic kidney disease) Qualifiers: Chronic kidney disease stage: stage 3 (moderate) Qualified Code(s): N18.3 - Chronic kidney disease, stage 3 (moderate) Disposition: Admitted As Inpatient Condition: Undetermined Time of Disposition: 16:05 General Adult HPI - General Chief complaint: ED Back Pain/Injury Stated complaint: No urine output x 3days Time Seen by Provider: 05/02/17 12:39 Source: patient Mode of arrival: EMS Limitations: no limitations Nursing Notes Reviewed: Yes Vital Signs Reviewed: Yes - History of Present Illness HPI Narrative: 82-year-old female with history of COPD and cholelithiasis arrives [facility] emergency department complaining of 3 days of inability to urinate. The patient states she still has the symptoms and the feeling of trying to urinate but is unable to do so. Patient states she just gets a few drops out at a time. The patient denies any previous history of any episodes like this in the past. Patient also admits to right back pain. The patient denies any other complaints at this time and is not altered. She is able to answer all questions appropriately. The patient denies any symptoms similar to this in the past associated with her cholelithiasis as well as her kidney disease. Patient is mildly tachycardic but appears uncomfortable in the room. No other signs of fever or hypotension. Onset (ago): day(s) (3) Location: back Radiation: back Pain Severity: moderate, severe Pain Scale: 10 Improves with: nothing Worsens with: nothing Associated symptoms: Reports: other (Anuria) - Related Data Home Medications Medication Instructions Recorded Confirmed Albuterol Neb [Proventil Neb] 2.5 mg IH TID PRN 02/19/17 05/02/17 Albuterol Sulfate [Ventolin Hfa] 2 puff IH Q4H PRN 02/19/17 05/02/17 Aspirin [Lo-Dose Aspirin EC] 81 mg PO DAILY 02/19/17 05/02/17 Calcium Carbonate/Vitamin D3 1 tab PO DAILY 02/19/17 05/02/17 [Calcium 600 + Vit D Tablet] Cetirizine HCl [All Day Allergy] 10 mg PO HS 02/19/17 05/02/17 Cyanocobalamin (Vitamin B-12) 1,000 mcg PO DAILY 02/19/17 05/02/17 [Vitamin B12] Docusate Sodium [Dok] 100 mg PO DAILY PRN 02/19/17 05/02/17 Fluticasone/Vilanterol [Breo 1 puff IH DAILY 02/19/17 05/02/17 Ellipta 100-25 Mcg INH] Folic Acid 0.4 mg PO DAILY 02/19/17 05/02/17 Furosemide [Lasix] 40 mg PO DAILY PRN 02/19/17 05/02/17 Ipratropium/Albuterol Neb [Duoneb] 3 ml IH Q6HR PRN 02/19/17 05/02/17 Latanoprost [Xalatan] 2.5 ml BOTH EYES HS 02/19/17 05/02/17 Omeprazole [PriLOSEC] 20 mg PO DAILY 02/19/17 05/02/17 Oxygen 2 l NS HS 02/19/17 05/02/17 PrednisoLONE Acetate [Pred Forte] 1 drop OP BID 02/19/17 05/02/17 Pregabalin [Lyrica] 50 mg PO BID 02/19/17 05/02/17 Roflumilast [Daliresp] 500 mcg PO DAILY 02/19/17 05/02/17 Simvastatin [Zocor] 20 mg PO HS 02/19/17 05/02/17 Timolol Maleate 0.25% 1 drop BOTH EYES QAM 02/19/17 05/02/17 Valsartan [Diovan] 80 mg PO DAILY 02/19/17 05/02/17 Oxycodone HCl/Acetaminophen 1 each PO QID PRN 05/02/17 05/02/17 [Percocet 5-325 mg Tablet] Allergies Allergy/AdvReac Type Severity Reaction Status Date / Time morphine AdvReac Anaphylaxis Verified 05/02/17 12:40 All systems ED: reviewed and negative except as stated. Constitutional: Denies: fever, chills, weakness Eyes: Denies: eye pain, eye discharge ENT ED: Denies: ear pain, throat pain Cardiovascular: Denies: chest pain, dyspnea on exertion Respiratory: Denies: dyspnea, wheezes Gastrointestinal: Denies: abdominal pain, nausea, vomiting Genitourinary: Reports: dysuria. Denies: urgency, frequency, hematuria, discharge Musculoskeletal: Reports: back pain. Denies: neck pain, joint swelling, arthralgia, myalgia Integumentary: Denies: rash Neurological: Denies: headache, weakness, numbness, paresthesias, abnormal gait Past Medical History - Past Medical History Attestation: Yes The following information was validated with the patient. Source: patient Medical history: Reports: COPD, coronary artery disease, CVA, hyperlipidemia, hypertension, kidney stones, myocardial infarction, renal disease Surgical history: Reports: cholecystectomy, herniorrhaphy, hysterectomy, orthopedic, other Psychiatric history: Reports: no psych history - Social History Smoking Status: Former smoker Smokeless Tobacco Status: No Alcohol use: Reports: none Drug use: Reports: none Physical Exam - General Limitations: no limitations General appearance: alert, in no apparent distress - Head Head exam: atraumatic, normocephalic, normal inspection - Eye Eye exam: Present: normal appearance, PERRL, EOMI - ENT ENT exam: normal exam, normal oropharynx, mucous membranes moist - Neck Neck exam: Present: normal inspection, full ROM, trachea midline - Chest Chest inspection: Present: normal inspection, symmetric chest wall rise - Respiratory Respiratory exam: Present: normal lung sounds bilaterally - Cardiovascular Cardiovascular exam: Present: normal rhythm, tachycardia, normal heart sounds - Abdominal Exam Abdominal exam: Present: soft, Non-Tender. Absent: tenderness, distention, guarding, rebound, rigidity - Extremities Exam Extremities exam: Present: normal inspection, full ROM. Absent: tenderness, pedal edema - Back Exam Back exam: Present: normal inspection, full ROM, CVA tenderness (R) - Neurological Exam Neurological exam: Present: alert, oriented X3 Course - Consultations Consultation #1: We spoke with Dr. Rajput in nephrology who agreed that we perform a proper workup here in the emergency department. After discussion we decided that the patient will likely be admitted for hobs. This is likely prerenal but given the patient's history of drinking at baseline, we will still admit the patient and IV fluids. Time: 15:52 Vital Signs Temperature 97.8 F 05/02/17 12:41 Pulse Rate 111 05/02/17 12:41 Respiratory Rate 18 05/02/17 12:41 Blood Pressure 149/77 05/02/17 12:41 O2 Sat by Pulse Oximetry 95 05/02/17 12:41 Temperature 97.8 F 05/02/17 12:41 Pulse Rate 111 10/04/17 12:41 Respiratory Rate 18 05/02/17 12:41 Blood Pressure 149/77 05/02/17 12:41 O2 Sat by Pulse Oximetry 95 05/02/17 12:41 Oxygen Delivery Oxygen Delivery Room Air Medical Decision Making - MDM Narrative Medical decision making narrative: Patient had Lovell placed with only 50 mL of urine that came out. The patient's CT scan demonstrates no other acute findings. The patient has a baseline poor renal function. Given that the patient receiving IV fluids without any urinary output in her renal function at baseline. This is likely prerenal given the high specific gravity and tachycardia. The patient will be admitted to the hospitalist for further workup and care. We spoke to nephrology who had no further input on workup here in the emergency department. Patient made aware and agrees to plan. Accepted by Dr. Titus to the hospitalist group. - Medical Records Medical records reviewed: Yes I reviewed the patient's medical records. - Lab Data Lab results reviewed: Yes I reviewed the patient's lab results. Result diagrams: 05/02/17 12:56 05/02/17 12:56 Lab Results 05/02/17 05/02/17 05/02/17 Range/Units 12:56 12:56 13:49 WBC 11.1 (4.3-11.1) K/mcL RBC 3.80 L (3.82-4.97) M/mcL Hgb 10.9 L (11.5-15.4) g/dL Hct 35.0 L (35.3-44.9) % MCV 92.1 (83.0-100.0) fL MCH 28.7 (28.0-33.3) pg MCHC 31.1 L (31.6-35.5) g/dL RDW 17.9 H (11.5-14.5) % Plt Count 388 (140-400) K/mcL MPV 9.8 (9.4-12.4) fL Immature Gran % 0.6 (0-4) % Seg Neutrophils % 59.4 % Lymphocytes % 23.6 % Monocytes % 8.7 % Eosinophils % 6.9 % Basophils % 0.8 % Neutrophils # 6.6 (1.6-8.9) K/mcL Lymphocytes # 2.6 (0.6-4.6) K/mcL Monocytes # 1.0 (0.0-1.3) K/mcL Eosinophils # 0.8 H (0.0-0.6) K/mcL Basophils # 0.1 (0.0-0.2) K/mcL Sodium 142 (136-145) mEq/L Potassium 3.6 (3.5-4.5) mEq/L Chloride 110 H (98-109) mEq/L Carbon Dioxide 23 (19-29) mEq/L BUN 24 H (7-20) mg/dL Creatinine 1.14 H (0.57-1.11) mg/dL Est GFR ( Amer) 55 L (> 60) Est GFR (Non-Af Amer) 45 L (> 60) BUN/Creatinine Ratio 21 (6-26) Glucose 106 H (70-99) mg/dL Calculated Osmolality 298 (280-300) Calcium 9.8 (8.6-10.8) mg/dL Total Bilirubin 0.4 (0.2-1.2) mg/dL AST 10 (5-34) Units/L ALT 8 (0-55) Units/L Alkaline Phosphatase 99 (38-126) Units/L Serum Total Protein 6.7 (6.0-8.3) g/dL Albumin 3.2 L (3.5-5.0) g/dL Globulin 3.5 (2.4-3.5) g/dL Albumin/Globulin Ratio 0.9 L (1.1-2.2) Urine Color Yellow (Yellow) Urine Clarity Clear (Clear) Urine pH 5.5 (5.0-8.0) pH Units Ur Specific [place] > 1.030 H (1.010-1.025) Urine Protein 30 H (Neg-Trace) mg/dL Urine Glucose (UA) Normal (Normal) mg/dL Urine Ketones Negative (Negative) mg/dL Urine Blood Negative (Negative) Urine Nitrite Negative (Negative) Urine Bilirubin Small H (Negative) Urine Urobilinogen Normal (Normal) mg/dL Ur Leukocyte Esterase Negative (Negative) Urine Microscopic RBC 0-3 (0-3) per hpf Urine Microscopic WBC 0-3 (0-3) per hpf Ur Squamous Epith Cells Many H (None-Few) per lpf Urine Bacteria None Seen (None-Few) per hpf Hyaline Casts None Seen (None-Few) per lpf Ur Culture Indicated? NO (NO) - Radiology Data Radiology results reviewed: Yes I reviewed the patient's radiology results. - EKG Data EKG #1 EKG attestation: Yes I reviewed and interpreted this EKG. EKG results narrative: Heart rate 100 bpm period. 153 mg. QTC 390 ms. Normal axis. Sinus tachycardia with no ST elevation or ST depression noted. Similar EKG from 02/21. Attestation Statement - Attestation Attestation: I examined this patient and my medical decision-making was reviewed with the Resident Physician. I agree with the documented findings, disposition and treatment plan as described except to the extent set forth below. Patient to the emergency department with a chief below urine output. He has been able to urinate normally for 3 days. Eating and drinking. She also has some pain in the right lower back. No fever no vomiting. On examination she is laying in bed in no acute distress. Her abdomen is soft nontender. No rash or swelling in her back. Plan. The patient is at very low urine output here after having a Lovell catheter placed. Renal function is normal. Discussed with nephrology and we are in agreement we will admit the patient for observation.
[2017-05-02 13:07] LABS: Basophils # 0.1 K/mcL (0.0-0.2); Basophils % 0.8 %; Eosinophils # 0.8 K/mcL (0.0-0.6); Eosinophils % 6.9 %; Hemoglobin 10.9 g/dL (11.5-15.4); Immature Granulocytes % 0.6 % (0-4); Lymphocytes # 2.6 K/mcL (0.6-4.6); Lymphocytes % 23.6 %; Mean Corpuscular HGB Conc 31.1 g/dL (31.6-35.5); Mean Corpuscular Hemoglobin 28.7 pg (28.0-33.3); Mean Corpuscular Volume 92.1 fL (83.0-100.0); Mean Platelet Volume 9.8 fL (9.4-12.4); Monocytes % 8.7 %; Neutrophils # 6.6 K/mcL (1.6-8.9); Platelet Count 388 K/mcL (140-400); Red Cell Distribution Width 17.9 % (11.5-14.5); Segmented Neutrophils % 59.4 %
[2017-05-02 13:17] LABS: Albumin 3.2 g/dL (3.5-5.0); Albumin/Globulin Ratio 0.9 (1.1-2.2); Bilirubin,Total 0.4 mg/dL (0.2-1.2); Calcium 9.8 mg/dL (8.6-10.8); Globulin 3.5 g/dL (2.4-3.5); Potassium 3.6 mEq/L (3.5-4.5); Total Protein 6.7 g/dL (6.0-8.3)
[2017-05-02 13:58] LABS: Bilirubin,Urine Small (Negative); Blood,Urine Negative (Negative); Clarity,Urine Clear (Clear); Color,Urine Yellow (Yellow); Glucose,Urine (UA) Normal (Normal); Ketones,Urine Negative (Negative); Leukocyte Esterase,Urine Negative (Negative); Nitrite,Urine Negative (Negative); PH,Urine 5.5 pH Units (5.0-8.0); Protein,Urine 30 mg/dL (Neg-Trace); Specific Gravity,Urine > 1.030 (1.010-1.025); Urobilinogen,Urine Normal (Normal)
[2017-05-02 14:00] LABS: Bacteria,Urine None Seen per hpf (None-Few); Hyaline Casts,Urine None Seen per lpf (None-Few); RBC,Urine 0-3 per hpf (0-3); Squamous Epithelial Cell,Urine Many per lpf (None-Few); WBC,Urine 0-3 per hpf (0-3)
[2017-05-02] MEDS ORDERED: 0.9 % Sodium Chloride 1,000 ML IVC ONE (14:39)
--- NOTE | 2017-05-02 18:44 | Internal Med History&Physical ---
<Norbert Ndiaye J - Last Filed: 05/02/17 19:48> Date of Encounter: 05/02/17 Time of Encounter: 18:41 Assessment and Plan (1) Dehydration Current visit: Yes Status: Acute Reports decrease in oral intake, oliguria x3 days, labs indicate dehydration (2) Acute on chronic renal failure Current visit: No Status: Acute Likely prerenal due to dehydration. Patient reports 3 day history of oliguria, creatinine is 1.14, which is actually an improvement from baseline but likely acute renal failure as her BUN/CR ration has increased from baseline. Continue to rehydrate patient. Nephro consulted in ED 0.9% normal saline at 100 mL per hour CBC/BMP in the a.m. Qualifiers: Acute renal failure type: unspecified Chronic kidney disease stage: stage 3 (moderate) Qualified Code(s): N17.9 - Acute kidney failure, unspecified; N18.3 - Chronic kidney disease, stage 3 (moderate); N18.3 - Chronic kidney disease, stage 3 (moderate) (3) Tachycardia Current visit: Yes Status: Acute Likely d/t dehydration. Hemodynamically stable, consider adding BB if tachycardia does not improve with fluid resuscitation (4) HTN (hypertension) Current visit: No Status: Chronic Hemodynamically stable, continue home BP meds. Qualifiers: Hypertension type: essential hypertension Qualified Code(s): I10 - Essential (primary) hypertension (5) Chronic anemia Current visit: Yes Status: Acute appears stable upon review of prior labs (6) COPD (chronic obstructive pulmonary disease) Current visit: No Status: Chronic stable, no respiratory distress. Continue home medications. Qualifiers: COPD type: unspecified COPD Qualified Code(s): J44.9 - Chronic obstructive pulmonary disease, unspecified (7) DVT prophylaxis Current visit: No Status: Acute Internal Medicine - H&P: HPI Chief complaint: oliguria x3 days Admitted From: Home Plans for Post Hospital Care: Home History of present illness: Ms. oCndon is a 82 year old female with a PMH of COPD, CAD, CVA, HLD, HTN, kidney stones, HI and CKD stage III who presents to [facility] with a 3 day h/o oliguria, Rt lower back pain, and a decrease in oral intake for the last week d/ t decrease in appetite. She reports that she has only had minimal urinary output for 3 days, denies any dysuria, fevers, abdominal pain, or N/V/D. She is mildly tachycardic, UA show a high specific gravity, CBC unremarkable, CMP shows an increase in BUN/CR ratio. CT Abdomen/Pelvis indicates no hydronephrosis, and no intraabdominal abnormalities. She appears to be dehydrated. Will admit for further workup and evaluation. Past Med Surg Social Fam HX - Past Medical History Medical history: COPD, coronary artery disease, CVA, hyperlipidemia, hypertension, kidney stones, myocardial infarction, renal disease Psychiatric history: no psych history - Past Surgical History Surgical History: cholecystectomy, herniorrhaphy, hysterectomy, orthopedic, other - Social History Smoking Status: Former smoker Smokeless Tobacco Status: No Alcohol use: none Drug use: none - Family History Mother Living Status: Father Living Status: Hx Family Cardiac Disorders: Yes (HI) Internal Medicine - H&P: Meds Albuterol Neb [Proventil Neb] 2.5 mg IH TID PRN 02/19/17 [History] Albuterol Sulfate [Ventolin Hfa] 2 puff IH Q4H PRN 02/19/17 [History] Aspirin [Lo-Dose Aspirin EC] 81 mg PO DAILY 02/19/17 [History] Calcium Carbonate/Vitamin D3 [Calcium 600 + Vit D Tablet] 1 tab PO DAILY [History] Cetirizine HCl [All Day Allergy] 10 mg PO HS 02/19/17 [History] Cyanocobalamin (Vitamin B-12) [Vitamin B12] 1,000 mcg PO DAILY 02/19/17 [History ] Docusate Sodium [Dok] 100 mg PO DAILY PRN 02/19/17 [History] Fluticasone/Vilanterol [Breo Ellipta 100-25 Mcg INH] 1 puff IH DAILY 02/19/17 [ History] Folic Acid 0.4 mg PO DAILY 02/19/17 [History] Furosemide [Lasix] 40 mg PO DAILY PRN 02/19/17 [History] Ipratropium/Albuterol Neb [Duoneb] 3 ml IH Q6HR PRN 02/19/17 [History] Latanoprost [Xalatan] 2.5 ml BOTH EYES HS 02/19/17 [History] Omeprazole [PriLOSEC] 20 mg PO DAILY 02/19/17 [History] Oxygen 2 l NS HS 02/19/17 [History] PrednisoLONE Acetate [Pred Forte] 1 drop OP BID 02/19/17 [History] Pregabalin [Lyrica] 50 mg PO BID 02/19/17 [History] Roflumilast [Daliresp] 500 mcg PO DAILY 02/19/17 [History] Simvastatin [Zocor] 20 mg PO HS 02/19/17 [History] Timolol Maleate 0.25% 1 drop BOTH EYES QAM 02/19/17 [History] Valsartan [Diovan] 80 mg PO DAILY 02/19/17 [History] Oxycodone HCl/Acetaminophen [Percocet 5-325 mg Tablet] 1 each PO QID PRN [History] 3 Allergy/AdvReac Type Severity Reaction Status Date / Time morphine AdvReac Anaphylaxis Verified 05/02/17 12:40 All Systems PM: A 10-system review of systems was performed and is negative for pertinent findings except as documented above in the HPI. - Constitutional Constitutional: no chills, no fever(s), no night sweats - EENT Eyes: no change in vision, no discharge, no pain, no photophobia Ears: no ear discharge, no ear pain, no tinnitus Nose, mouth and throat: no dysphagia, no nasal discharge, no neck pain, no sore throat - Cardiovascular Cardiovascular ROS IM: no chest pain, no diaphoresis, no dyspnea, no lightheadedness, no palpitations, no syncope - Respiratory Respiratory: no cough, no dyspnea, no wheezing, no excessive phlegm production - Gastrointestinal Gastrointestinal: no abdominal pain, no diarrhea, no hematemesis, no hematochezia, no melena, no nausea, no vomiting - Genitourinary Genitourinary: as per HPI (OLIGURIA), difficulty urinating, no change in urinary stream, no dysuria, no flank pain, no hematuria - Musculoskeletal Musculoskeletal ROS IM: back pain (Right lower back pain), no numbness, no tingling - Integumentary Integumentary IM: no rash, no unusual bruising - Neurological Neurological ROS: no confusion, no convulsions, no focal weakness, no numbness, no tingling, no tremor(s) - Hematologic/Lymphatic Hematologic/Lymphatic: no easy bruising - Constitutional Vitals: Temp Pulse Resp BP Pulse Ox 98.0 F 97 17 140/69 93 05/02/17 17:47 05/02/17 17:47 05/02/17 17:47 05/02/17 17:47 05/02/17 17:47 General appearance: Present: cooperative, A&O X 3, no acute distress, answers questions appropriately - Head Head exam: Present: atraumatic, normocephalic - Eye Eye exam: Present: PERRL, conjuntiva pink, sclera anicteric Pupils: Present: PERRL - Neck Neck exam general surgery: Present: supple, trachea midline. Absent: lymphadenopathy - Respiratory Respiratory exam: Present: CTAB. Absent: accessory muscle use, rales, rhonchi, wheezes - Cardiovascular Cardiovascular exam: Present: RRR, +S1, +S2. Absent: diastolic murmur, gallop, rubs, systolic murmur - GI/Abdominal GI/Abdominal exam: Present: normal bowel sounds, soft, no peritoneal signs. Absent: distended, tenderness - Extremities Exam Extremities exam: Present: warm, radial pulses palpable and symmetrical. Absent : calf tenderness, cyanotic, pedal edema - Neurological Exam Neurological exam: Present: CN II-XII intact, oriented X3, no focal deficits. Absent: pronater drift, facial droop, speech deficit - Skin Skin exam: Present: dry, intact Internal Med - H&P Results - Labs CBC & Chem 7: 05/02/17 12:56 05/02/17 12:56 - EKG Data -: EKG Interpreted by Myself EKG shows normal: sinus rhythm Rate: tachycardia - EKG Data Prior EKG available for review: yes When compared to previous EKG: there is no significant change - Diagnostic Studies CT scan - abdomen Status: image reviewed by me Additional comments: CT abdomen and pelvis-no acute intraabdominal process. No hydronephrosis, Rt kidney contour abnormality noted no changes from prior CT. <Rhiannon Woo - Last Filed: 05/03/17 01:23> Date of Encounter: 05/02/17 Internal Medicine - H&P: HPI History of present illness: Ms. Condon is a 82 year old female All Systems PM: A 10-system review of systems was performed and is negative for pertinent findings except as documented above in the HPI. - Constitutional Vitals: Temp Pulse Resp BP Pulse Ox 97.7 F 93 17 136/76 93 05/03/17 00:24 05/03/17 00:24 05/03/17 00:24 05/03/17 00:24 05/03/17 00:24 Internal Med - H&P Results - Labs CBC & Chem 7: 05/02/17 12:56 05/02/17 12:56 - Attending Attestation I have personally performed a face to face evaluation on this patient and I discussed the assessment and plan with the nurse practitioner. I have reviewed and agree with the documented care plan. History and Exam by me shows: Ms. Condon is a 82 year old female with a PMH of COPD, CAD, CVA, HLD, HTN, kidney stones, HI and CKD stage III who presents to [facility] with a 3 day h/o oliguria, Rt lower back pain, and a decrease in oral intake for the last week d/ t decrease in appetite. She reports that she has only had minimal urinary output for 3 days, denies any dysuria, fevers, abdominal pain, or N/V/D. She is mildly tachycardic, UA show a high specific gravity, CBC unremarkable, CMP shows an increase in BUN/CR ratio. CT Abdomen/Pelvis indicates no hydronephrosis, and no intraabdominal abnormalities. She appears to be dehydrated. Gen: A, A, O x 3, looks lethargic and dehydrated Chest: Diminished BS b/l no crackles, No rales Heart : S1S2+ RRR No murmurs Abd: Soft, NT BS + a/p 1. Severe dehydration 2. Acute sinus tachycardia due to dehydration 3. Non oliguric SUZETTE with CKD-3 Cont Iv hydration cont supportive care Avoid nephrotoxic eds
[2017-05-02] MEDS ORDERED: Albuterol 2.5 MG/3 ML NEBULIZER IH PRN (18:46)
[2017-05-02] MEDS ORDERED: Furosemide 40 MG TABLET PO PRN (18:46)
[2017-05-02] MEDS ORDERED: Ipratropium/Albuterol Neb 3 ML IH PRN (18:46)
[2017-05-02] MEDS ORDERED: Naloxone 0.4 MG/ML INJ IVP PRN (18:51)
[2017-05-02] MEDS: *HR* OxyCODONE/APAP 5/325 TABLET PO PRN (19:44)
[2017-05-02] MEDS: *HR* Heparin 5,000 UNIT/ML VIAL SQ SCH (19:44)
[2017-05-02] MEDS: 0.9 % Sodium Chloride 1,000 ML IVC SCH (19:56)
[2017-05-02] MEDS ORDERED: Ondansetron 4 MG/2 ML VIAL IVP PRN (19:58)
[2017-05-02] MEDS ORDERED: Loratadine 10 MG TABLET PO SCH (21:00)
[2017-05-02] MEDS ORDERED: Latanoprost 2.5 ML BOTTLE BOTH EYES SCH (21:00)
[2017-05-02] MEDS: Pregabalin 50 MG CAPSULE PO SCH (21:24)
[2017-05-02] MEDS: PrednisoLONE Acetate 1% Opth 5 ML BOTTLE RIGHT EYE SCH (21:27)
--- NOTE | 2017-05-02 22:57 | Electrocardiograph Report ---
[facility] [employer] Test Date: 2017-05-02 Pat Name: Ronal Condon Department: 103 Room: 2A12 Gender: F Bindery Helper: [facility] : 1935 Requested By: Medhat Hgih Order Number: [id number] Reading MD: Gallo Yates MD Measurements Intervals [place] Rate: 100 P: 128 AR: 153 QRS: -24 QRSD: 80 T: 0 QT: 333 QTc: 390 Interpretive Statements SINUS TACHYCARDIA Electronically Signed On 05-02-2017 22:55:57 EDT by Gallo Yates MD
[2017-05-03] MEDS: *HR* OxyCODONE/APAP 5/325 TABLET PO PRN ×2 (02:09→08:52)
[2017-05-03 04:52] LABS: Basophils # 0.1 K/mcL (0.0-0.2); Eosinophils # 1.1 K/mcL (0.0-0.6); Eosinophils % 13.5 %; Hematocrit 31.1 % (35.3-44.9); Hemoglobin 9.6 g/dL (11.5-15.4); Immature Granulocytes % 0.4 % (0-4); Lymphocytes # 1.8 K/mcL (0.6-4.6); Lymphocytes % 22.1 %; Mean Corpuscular HGB Conc 30.9 g/dL (31.6-35.5); Mean Platelet Volume 10.4 fL (9.4-12.4); Monocytes # 0.7 K/mcL (0.0-1.3); Monocytes % 8.7 %; Neutrophils # 4.4 K/mcL (1.6-8.9); Platelet Count 309 K/mcL (140-400); Red Blood Count 3.31 M/mcL (3.82-4.97); Segmented Neutrophils % 54.3 %
[2017-05-03 05:03] LABS: BUN/Creatinine Ratio 20 (6-26); Blood Urea Nitrogen 19 mg/dL (7-20); Calcium 8.5 mg/dL (8.6-10.8); Carbon Dioxide 19 mEq/L (19-29); Chloride 115 mEq/L (98-109); Glucose 129 mg/dL (70-99); Osmolality,Calculated 298 (280-300); Potassium 3.3 mEq/L (3.5-4.5); Sodium 142 mEq/L (136-145); eGFR For African Americans > 60 (> 60); eGFR For Non-African Americans 57 (> 60)
[2017-05-03] MEDS: 0.9 % Sodium Chloride 1,000 ML IVC SCH (06:12)
[2017-05-03] MEDS: *HR* Heparin 5,000 UNIT/ML VIAL SQ SCH (06:13)
[2017-05-03 07:07] VITALS: BP 128/61
--- NOTE | 2017-05-03 08:13 | Discharge Summary ---
Date of Encounter: 05/03/17 Time of Encounter: 08:10 - Discharge Diagnosis (1) Urinary retention Priority: Primary Status: Acute Comments: Acute urinary retention Keep Lovell catheter and follow-up with urology (2) CKD (chronic kidney disease) stage 3, GFR 30-59 ml/min Priority: Secondary Status: Acute (3) CAD (coronary artery disease) Priority: Secondary Status: Chronic Qualifiers: Coronary Disease-Associated Artery/Lesion type: [place] artery [place] vs. transplanted heart: [place] heart Associated angina: without angina Qualified Code(s): I25.10 - Atherosclerotic heart disease of [place] coronary artery without angina pectoris (4) HTN (hypertension) Priority: Secondary Status: Chronic Qualifiers: Hypertension type: essential hypertension Qualified Code(s): I10 - Essential (primary) hypertension (5) Dehydration Priority: Primary Status: Acute (6) Tachycardia Priority: Primary Status: Acute Comments: Secondary to dehydration - Discharge Medications Prescriptions: Oxycodone HCl/Acetaminophen [Percocet 5-325 mg Tablet] 1 each PO QID PRN #20 tablet PRN Reason: Pain Home Medications: Albuterol Neb [Proventil Neb] 2.5 mg IH TID PRN 02/19/17 [History] Albuterol Sulfate [Ventolin Hfa] 2 puff IH Q4H PRN 02/19/17 [History] Aspirin [Lo-Dose Aspirin EC] 81 mg PO DAILY 02/19/17 [History] Calcium Carbonate/Vitamin D3 [Calcium 600 + Vit D Tablet] 1 tab PO DAILY [History] Cetirizine HCl [All Day Allergy] 10 mg PO HS 02/19/17 [History] Cyanocobalamin (Vitamin B-12) [Vitamin B12] 1,000 mcg PO DAILY 02/19/17 [History ] Docusate Sodium [Dok] 100 mg PO DAILY PRN 02/19/17 [History] Fluticasone/Vilanterol [Breo Ellipta 100-25 Mcg INH] 1 puff IH DAILY 02/19/17 [ History] Folic Acid 0.4 mg PO DAILY 02/19/17 [History] Furosemide [Lasix] 40 mg PO DAILY PRN 02/19/17 [History] Ipratropium/Albuterol Neb [Duoneb] 3 ml IH Q6HR PRN 02/19/17 [History] Latanoprost [Xalatan] 2.5 ml BOTH EYES HS 02/19/17 [History] Omeprazole [PriLOSEC] 20 mg PO DAILY 02/19/17 [History] Oxygen 2 l NS HS 02/19/17 [History] PrednisoLONE Acetate [Pred Forte] 1 drop OP BID 02/19/17 [History] Pregabalin [Lyrica] 50 mg PO BID 02/19/17 [History] Roflumilast [Daliresp] 500 mcg PO DAILY 02/19/17 [History] Simvastatin [Zocor] 20 mg PO HS 02/19/17 [History] Timolol Maleate 0.25% 1 drop BOTH EYES QAM 02/19/17 [History] Valsartan [Diovan] 80 mg PO DAILY 02/19/17 [History] Oxycodone HCl/Acetaminophen [Percocet 5-325 mg Tablet] 1 each PO QID PRN #20 tablet 05/03/17 [Rx] Allergies/Adverse Reactions: 3 Allergy/AdvReac Type Severity Reaction Status Date / Time morphine AdvReac Anaphylaxis Verified 05/02/17 12:40 Date of admission: 05/02/17 16:29 Primary care physician: Jason Crane MD - Patient Status Disposition: Home, Self-Care Condition: Fair Overall status at discharge: patient is back to baseline - Discharge Instructions Follow Up With: Jason Crane MD [Primary Care Provider] - (Web request 05/03/17) Additional Instructions: Follow-up with primary care physician within the next 7 days. Follow up with urology within the next 7 days. Keep Lovell in until follow-up appointment with urology. Maintain good hydration. Use Lasix only as needed - Diet and Activity Activity: increase activity as tolerated Diet: low fat, low cholesterol Hospital course: Ms. Condon is a 82 year old female with a PMH of COPD not oxygen dependent, CAD, CVA, HLD, HTN, kidney stones, [place] and CKD stage III who presented to [facility] with a 3 day h/o oliguria, Rt lower back pain, and a decrease in oral intake for the last week d/t decrease in appetite. She reported that she has only had minimal urinary output for 3 days, denied any dysuria, fevers, abdominal pain, or N/V/D. She was mildly tachycardic, UA showed a high specific gravity, CBC unremarkable, CMP showed an increase in BUN/CR ratio. CT Abdomen/Pelvis indicates no hydronephrosis, and no intraabdominal abnormalities. She appeared to be dehydrated. The patient was started on IV fluids and a Lovell catheter was placed. She has good urine output at the moment and her creatinine has decreased down to 0.93. Complaining of mild left lower back pain for which she takes Percocet at home. Was diagnosed with urinary retention, [facility] follow up with urology as an outpatient. Patient was given the option to stay an additional day but prefers to be discharged later today. Potassium was 3.3 will be repleted prior to discharge. - Time Spent with Patient Total time spent providing and/or coordinating discharge services: Greater than 30 minutes (40 min) - Constitutional Vitals: Temp Pulse Resp BP Pulse Ox 97.7 F 88 17 128/61 96 05/03/17 07:30 05/03/17 07:02 05/03/17 07:02 05/03/17 07:02 05/03/17 07:02 General appearance: Present: cooperative, A&O X 3, no acute distress, answers questions appropriately - Head Head exam: Present: atraumatic, normocephalic - Eye Eye exam: Present: PERRL, conjuntiva pink, sclera anicteric Pupils: Present: PERRL - Neck Neck exam general surgery: Present: supple, trachea midline. Absent: lymphadenopathy - Respiratory Respiratory exam: Present: CTAB. Absent: accessory muscle use, rales, rhonchi, wheezes - Cardiovascular Cardiovascular exam: Present: RRR, +S1, +S2. Absent: diastolic murmur, gallop, rubs, systolic murmur - GI/Abdominal GI/Abdominal exam: Present: normal bowel sounds, soft, no peritoneal signs. Absent: distended, tenderness - Extremities Exam Extremities exam: Present: warm, radial pulses palpable and symmetrical. Absent : calf tenderness, cyanotic, pedal edema - Neurological Exam Neurological exam: Present: CN II-XII intact, oriented X3, no focal deficits. Absent: pronater drift, facial droop, speech deficit - Skin Skin exam: Present: dry, intact
[2017-05-03] MEDS: Pregabalin 50 MG CAPSULE PO SCH (08:46)
[2017-05-03] MEDS ORDERED: (Roflumilast [Daliresp] 500 MCG) PO SCH (09:00)
[2017-05-03] MEDS ORDERED: Folic Acid 1 MG TABLET PO SCH (09:00)
[2017-05-03] MEDS ORDERED: Cyanocobalamin (B-12) 1,000 MCG TABLET PO SCH (09:00)
[2017-05-03] MEDS ORDERED: Cholecalciferol (D-3) 1,000 UNIT TABLET PO SCH (09:00)
[2017-05-03] MEDS ORDERED: Aspirin Enteric Coated 81 MG Tablet PO SCH (09:00)
[2017-05-03] MEDS ORDERED: Valsartan 80 MG TABLET PO SCH (09:00)
[2017-05-03] MEDS: PrednisoLONE Acetate 1% Opth 5 ML BOTTLE RIGHT EYE SCH (09:32)
[2017-05-03] MEDS ORDERED: Budesonide/Formoterol 160/4.5 MDI IH SCH (10:00)
--- NOTE | 2017-05-03 11:07 | Physician Discharge Referral ---
Home Health/Hosp Referral Info Transfer to: Home Health Provider in Charge Post Discharge: PCP - Diagnosis (1) Urinary retention Status: Acute (2) CKD (chronic kidney disease) stage 3, GFR 30-59 ml/min Status: Acute (3) CAD (coronary artery disease) Status: Chronic (4) HTN (hypertension) Status: Chronic (5) Dehydration Status: Acute (6) Tachycardia Status: Acute - Respiratory Orders Smoking Cessation: Smoking cessation has been advised. For more information, call the [place] Tobacco Quit Line at 7-188-KKXL-NOW. - Diet/Nutrition Diet/Nutrition Orders: No Added Salt (HUGH) - Services Needed Following services are medically necessary services: Nursing, Home Health Aide, Physical Therapy Home Care Orders: Follow-up with primary care physician within the next 7 days. Follow up with urology within the next 7 days. Keep Lovell in until follow-up appointment with urology. Maintain good hydration. Use Lasix only as needed - Transfer Medications Prescriptions: Oxycodone HCl/Acetaminophen [Percocet 5-325 mg Tablet] 1 each PO QID PRN #20 tablet PRN Reason: Pain Home Medications: Albuterol Neb [Proventil Neb] 2.5 mg IH TID PRN 02/19/17 [History] Albuterol Sulfate [Ventolin Hfa] 2 puff IH Q4H PRN 02/19/17 [History] Aspirin [Lo-Dose Aspirin EC] 81 mg PO DAILY 02/19/17 [History] Calcium Carbonate/Vitamin D3 [Calcium 600 + Vit D Tablet] 1 tab PO DAILY [History] Cetirizine HCl [All Day Allergy] 10 mg PO HS 02/19/17 [History] Cyanocobalamin (Vitamin B-12) [Vitamin B12] 1,000 mcg PO DAILY 02/19/17 [History ] Docusate Sodium [Dok] 100 mg PO DAILY PRN 02/19/17 [History] Fluticasone/Vilanterol [Breo Ellipta 100-25 Mcg INH] 1 puff IH DAILY 02/19/17 [ History] Folic Acid 0.4 mg PO DAILY 02/19/17 [History] Furosemide [Lasix] 40 mg PO DAILY PRN 02/19/17 [History] Ipratropium/Albuterol Neb [Duoneb] 3 ml IH Q6HR PRN 02/19/17 [History] Latanoprost [Xalatan] 2.5 ml BOTH EYES HS 02/19/17 [History] Omeprazole [PriLOSEC] 20 mg PO DAILY 02/19/17 [History] Oxygen 2 l NS HS 02/19/17 [History] PrednisoLONE Acetate [Pred Forte] 1 drop OP BID 02/19/17 [History] Pregabalin [Lyrica] 50 mg PO BID 02/19/17 [History] Roflumilast [Daliresp] 500 mcg PO DAILY 02/19/17 [History] Simvastatin [Zocor] 20 mg PO HS 02/19/17 [History] Timolol Maleate 0.25% 1 drop BOTH EYES QAM 02/19/17 [History] Valsartan [Diovan] 80 mg PO DAILY 02/19/17 [History] Oxycodone HCl/Acetaminophen [Percocet 5-325 mg Tablet] 1 each PO QID PRN #20 tablet 05/03/17 [Rx] Allergies/Adverse Reactions: 3 Allergy/AdvReac Type Severity Reaction Status Date / Time morphine AdvReac Anaphylaxis Verified 05/02/17 12:40 Certification: Further, I certify that my clinical findings support that this patient is homebound (i.e. absences from home require considerable and taxing effort and are for medical reasons or orthodoxy services or infrequently or short duration when for other reasons) because: Homebound Reason: Patient requires assistance of a person or device to safely leave home Attestation: My signature below is to certify that this patient is under my care and that I, or nurse practitioner, or a physician's family services assistant working with me, has a face-to -face encounter with this patient.
--- NOTE | 2017-05-03 11:50 | Nephrology Consult Note ---
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 Most likely prerenal in setting of poor oral intake. Baseline creat 1.6-2.4. Prior history of incomplete bladder emptying with PVR > 250cc. Continue IV hydration until oral intake improved. CT Abd/ Pelvis- no obstructive uropathy. Creat 0.93. Will do renal US as recommended per radiology due to abnormal contour of right kidney and patients continued right flank pain. Accurate I&O. Will continue to monitor. Qualifiers: Acute renal failure type: unspecified Chronic kidney disease stage: stage 3 (moderate) Qualified Code(s): N17.9 - Acute kidney failure, unspecified; N18.3 - Chronic kidney disease, stage 3 (moderate); N18.3 - Chronic kidney disease, stage 3 (moderate) History of Present Illness - Reason for Consult Chronic Kidney Disease - History of Present Illness Ms. 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 Last seen in office in February. Other PMH- COPD, coronary artery disease, CVA, hyperlipidemia, hypertension, kidney stones , myocardial infarction, renal disease, cholecystectomy, herniorrhaphy, hysterectomy, orthopedic. Ms. Condon presented to ER with complaints of inability to urinate for 3 days. Also complained of right back pain. She denied any recent illness, vomiting or diarrhea. Denied NSAID use. She does admit poor oral intake due to, "daughter in law is a poor cook." ER labs indicate dehydration. Started in IV fluids 0.9 NS at 100cc/hr. Actually initial creat 1.14 in ER is great improvement from baseline. CT Abd/Pelvis- no obstructive uropathy. Does show abnormal contour of right kidney that was unchanged from prior CT in 06/2016 but was not seen on subsequent renal US. Lovell catheter placed with only 50cc urine output. Today's creat 0.93. No documented urine output. Lovell bag with moderate amount concentrated urine. She does continue to have right flank discomfort. Past Med Surg Social Fam HX - Past Medical History Medical history: COPD, coronary artery disease, CVA, hyperlipidemia, hypertension, kidney stones, myocardial infarction, renal disease Psychiatric history: no psych history - Past Surgical History Surgical History: cholecystectomy, herniorrhaphy, hysterectomy, orthopedic, other - Social History Smoking Status: Former smoker Smokeless Tobacco Status: No Alcohol use: none Drug use: none - Family History Mother Living Status: Father Living Status: Hx Family Cardiac Disorders: Yes ([place]) Medications and Allergies Albuterol Neb [Proventil Neb] 2.5 mg IH TID PRN 02/19/17 [History] Albuterol Sulfate [Ventolin Hfa] 2 puff IH Q4H PRN 02/19/17 [History] Aspirin [Lo-Dose Aspirin EC] 81 mg PO DAILY 02/19/17 [History] Calcium Carbonate/Vitamin D3 [Calcium 600 + Vit D Tablet] 1 tab PO DAILY [History] Cetirizine HCl [All Day Allergy] 10 mg PO HS 02/19/17 [History] Cyanocobalamin (Vitamin B-12) [Vitamin B12] 1,000 mcg PO DAILY 02/19/17 [History ] Docusate Sodium [Dok] 100 mg PO DAILY PRN 02/19/17 [History] Fluticasone/Vilanterol [Breo Ellipta 100-25 Mcg INH] 1 puff IH DAILY 02/19/17 [ History] Folic Acid 0.4 mg PO DAILY 02/19/17 [History] Furosemide [Lasix] 40 mg PO DAILY PRN 02/19/17 [History] Ipratropium/Albuterol Neb [Duoneb] 3 ml IH Q6HR PRN 02/19/17 [History] Latanoprost [Xalatan] 2.5 ml BOTH EYES HS 02/19/17 [History] Omeprazole [PriLOSEC] 20 mg PO DAILY 02/19/17 [History] Oxygen 2 l NS HS 02/19/17 [History] PrednisoLONE Acetate [Pred Forte] 1 drop OP BID 02/19/17 [History] Pregabalin [Lyrica] 50 mg PO BID 02/19/17 [History] Roflumilast [Daliresp] 500 mcg PO DAILY 02/19/17 [History] Simvastatin [Zocor] 20 mg PO HS 02/19/17 [History] Timolol Maleate 0.25% 1 drop BOTH EYES QAM 02/19/17 [History] Valsartan [Diovan] 80 mg PO DAILY 02/19/17 [History] Oxycodone HCl/Acetaminophen [Percocet 5-325 mg Tablet] 1 each PO QID PRN #20 tablet 05/03/17 [Rx] 3 Allergy/AdvReac Type Severity Reaction Status Date / Time morphine AdvReac Anaphylaxis Verified 05/02/17 12:40 Review of Systems All Systems: reviewed and no additional remarkable complaints except as stated Exam - Vital Signs Vital signs: Initial Vital Signs Temp Pulse Resp BP Pulse Ox 97.8 F 111 18 149/77 95 05/02/17 12:41 05/02/17 12:41 05/02/17 12:41 05/02/17 12:41 05/02/17 12:41 Vital Signs - Last 8 Hours Temp Pulse Resp BP Pulse Ox 05/03/17 10:47 18 96 05/03/17 07:30 97.7 F 05/03/17 07:02 97.7 F 88 17 128/61 96 Intake and Output 05/02/17 05/03/17 05/03/17 23:59 07:59 15:59 Intake Total 0 / 0 910 / 910 120 / 120 Balance 0 / 0 910 / 910 120 / 120 Intake: IV Fluids 910 / 910 0.9 % Sodium Chloride 1,000 ML 910 / 910 @ 100 mls/hr IVC .Q10H SHAQ Rx#: [id number] Oral 0 / 0 120 / 120 Other: Meal Breakfast Percent of Meal Consumed 10% Weight 53 kg - General Appearance General appearance: appears started age, frail EENT: mucous membranes moist Neck: no JVD Respiratory: clear Cardiology: no edema, regular rate, regular rhythm Gastrointestinal: normoactive bowel sounds, no tenderness Integumentary: warm and dry Neurologic: alert and oriented x3 Psychiatric: mood/affect appropriate, cooperative Results - Lab Results 05/03/17 03:46 05/03/17 03:46 Most recent lab results Calcium 8.5 mg/dL (8.6-10.8) L 05/03/17 03:46 Consult Discharge Plan - Plan Instructions: Dehydration (DC), Chronic Kidney Disease (DC), Anemia (GEN) Additional Instructions: Follow-up with primary care physician within the next 7 days. Follow up with urology within the next 7 days. Keep Lovell in until follow-up appointment with urology. Maintain good hydration. Use Lasix only as needed Referrals: Jason Crane MD [Primary Care Provider] - 05/09/17 3:15 pm (Web request 05/03/17) Rafael Cunha MD [Partnered Physician] - 05/10/17 10:30 am (Please follow up as schedule...) Prescriptions: Oxycodone HCl/Acetaminophen [Percocet 5-325 mg Tablet] 1 each PO QID PRN #20 tablet PRN Reason: Pain
== END 2017-05-03 12:01 | disposition home or self-care (01) ==
LOC: 2ANU 12:36 → EMEROO 12:36 → 2ANU 17:21
PROVIDERS: ADMIT Nurse Practitioner; ATTEND Internal Medicine